=== PATIENT | male | born 1955 | race Caucasian/White ===

== ENCOUNTER 2020-09-25 10:41 | Inpatient (IN) | payer BC, SELFPAY ==
[2020-09-25] VITALS (21 sets, daily range): BP systolic 86–156; BP diastolic 62–102; PULSE 88–169; RESP 15–22; TEMP 36.8–37.1; O2SAT 93–99; BMI 26.5
--- NOTE | 2020-09-25 11:19 | ECG_ITS ---
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 Measurements Intervals [place] Rate: 158 P: [place]: QRS: 9 QRSD: 82 T: 74 QT: 255 QTc: 414 Interpretive Statements ATRIAL FIBRILLATION WITH RAPID VENTRICULAR RESPONSE NONSPECIFIC ST & T-WAVE ABNORMALITY ABNORMAL RHYTHM ECG No previous ECG available for comparison Electronically Signed On 09-25-2020 22:52:01 CDT by Catie Noe M.D. [id number]
--- NOTE | 2020-09-25 11:20 | XR_ITS ---
WS: [id number] Portable AP upright chest, 09/25/2020 Clinical Data: Cough Comparison: None. Findings: No nodules, masses or effusions are seen. The heart is normal. The pulmonary vascularity is not increased. No pneumonia or pneumothorax is seen. Monitor leads are on the chest wall. There is a slight dextroscoliosis. XR/XR chest 1V portable [id number] Impression: Negative chest.
--- NOTE | 2020-09-25 11:21 | ED_ITS ---
HPI - General Adult General: Chief complaint: General Medical Stated complaint: LOW BP Time Seen by Provider: 09/25/20 11:16 History of Present Illness: HPI narrative: This patient is a 65-year-old male who presents to the emergency department for low blood pressure and dizziness. Patient had a cerebellar stroke 1 year ago and is on multiple medications including blood pressure medications. Patient's blood pressure has been running low over the past 2 days but patient still took his medications for hypertension which includes amlodipine and losartan. Patient is on aspirin and Plavix. Patient appears to have some atrial fib with RVR heart rate ranging anywhere from 110-1 40. We will get an EKG and evaluate treat further as needed. Onset (ago): day(s) Associated symptoms: Reports palpitations; Deny chest pain, dyspnea, headache(s), nausea, rash or vomiting Review of Systems General: Reports: 10 or more systems reviewed and unremarkable except in HPI and below Const: Denies: fever(s), chills, body aches or fatigue Eyes: Denies: change in vision or blurry vision ENMT: Denies: throat pain, hoarseness or mouth pain Card: Reports: palpitations; Denies: chest pain, irregular heart rhythm, edema, swelling of feet/ankles or lightheadedness Resp: Denies: dyspnea, productive cough, non-productive cough, wheezing or pain on inspiration GI: Denies: abdominal pain, nausea or vomiting : Denies: flank pain, dysuria, urinary frequency, urinary urgency or urinary hesitancy Musc: Denies: neck pain, back pain, extremity pain, extremity swelling, joint pain, joint swelling, joint redness, joint warmth or limited range of motion Skin/Breast: Denies: rash, pruritus, erythema or skin tenderness Neuro: Reports: dizziness; Denies: headache(s), numbness in extremities or weakness in extremities Psych: Denies: anxiety or depression PFSH ED PFSH: Medical History Chronic low back pain CVD (cardiovascular disease) Gout Hx TIA/stroke w/o resid (~2019) Hyperlipidemia Hypertension Insomnia disorder Surgical History History of surgery on wrist Family History Mother COPD (chronic obstructive pulmonary disease) Other CAD (coronary artery disease) Social History Smoking and tobacco status: former smoker Alcohol intake: current Alcohol intake frequency: 0-2 Drinks per Day Alcohol type: beer Marital status: Number of children: 3 Number of grandchildren: 3 Current occupational status: retired Physical Exam Const: COMMON NORMALS: no acute distress, average body habitus, patient oriented x3, no limitations, healthy appearing, alert and well nourished HENMT: COMMON NORMALS: normocephalic, atraumatic, hearing grossly normal bilaterally, external ears normal, EAC's normal, TM's normal bilaterally, Normal external nose present, Normal nasal mucous membranes and turbinates present, moist oral mucous membranes, oropharynx normal, dentition normal and gingiva normal HEAD & SCALP: normocephalic and atraumatic NOSE: Normal external nose present and Normal nasal mucous membranes and turbinates present EXTERNAL EAR: Yes external ears normal EXTERNAL AUDITORY CANAL: EAC's normal TYMPANIC MEMBRANE: TM's normal bilaterally Neck/C-Spine: COMMON NORMALS: full ROM, no lymphadenopathy, supple, no meningeal signs, no JVD, Thyroid normal and No carotid bruits THYROID: Thyroid normal Chest: COMMONS NORMALS: normal inspection of the chest, normal palpation of entire chest wall, normal inspection of the breasts and normal palpation of the breasts Breast/axilla inspection: Yes normal inspection of the breasts BREAST/AXILLA PALPATION: Yes normal palpation of the breasts Resp: COMMON NORMALS: normal respiratory effort, No retractions, No use of accessory muscles, clear to auscultation bilaterally and percussion normal AUSCULTATION: clear to auscultation bilaterally PERCUSSION: percussion normal Cardio: COMMON NORMALS: no JVD, S1 normal heart sound present, S2 normal heart sound present, No gallops present (Cardio), No clicks present (Cardio), No murmurs present (Cardio), No rub (Cardio) and Peripheral pulses 2+ throughout RATE: tachycardic RHYTHM: abnormal rhythm HEART SOUNDS: S1 normal heart sound present and S2 normal heart sound present PERIPHERAL PULSES: Peripheral pulses 2+ throughout GI: COMMON NORMALS: Normal to inspection, nondistended, normoactive bowel sounds present, Soft to palpation, non-tender, No hepatosplenomegaly present, no masses and no bruits PALPATION: Yes Soft to palpation and Yes No hepatosplenomegaly present : COMMON NORMALS: Yes no CVA tenderness BLADDER/KIDNEY EXAM: Yes no CVA tenderness Back/Pelvis: COMMON NORMALS: no CVA tenderness, thoracic and lumbar spine normal to inspection, no thoracic nor lumbar tenderness, thoraco-lumbar ROM normal and straight leg raise negative bilaterally Extremity: COMMON NORMALS: normal to inspection, full ROM, capillary refill normal, no joint enlargement, no clubbing, cyanosis or edema, no calf tenderness and no pedal edema Neuro: COMMON NORMALS: patient oriented x3 SENSORIUM/ORIENTATION: Yes alert MENINGEAL SIGNS: Yes no meningeal signs Course Reevaluation(s): Reevaluation #1: Patient has improved. Blood pressure 144/89 after initial amiodarone drip. Heart rate is down in the 1 teens to 130s. Did have as high rate is in the 180s. Patient has no history of A. fib in the past. Patient is agreeable to admit. Time: 13:13 Consultations: Consultation #1: I did discuss at length with Dr. Dhaliwal. Hospitalist. He is agreed to admit the patient for further evaluation and treatment. He will start patient on anticoagulation medications due to new onset A. fib. Time: 13:13 Consultation #2: Discussed at length with Dr. Palmer cardiology she will see patient as a sap portal consultant. Time: 13:13 Vital Signs: Vital signs: Vital Signs Temperature 98.7 F 09/25/20 10:55 Pulse Rate 88 09/25/20 10:55 Respiratory Rate 18 09/25/20 10:55 Blood Pressure 86/62 09/25/20 10:55 Pulse Oximetry 98 09/25/20 10:55 MDM - General Adult MDM Narrative: Medical decision making narrative: This patient is a 65-year-old male who presents to the emergency department for low blood pressure and dizziness. Patient had a cerebellar stroke 1 year ago and is on multiple medications including blood pressure medications. Patient's blood pressure has been running low over the past 2 days but patient still took his medications for hypertension which includes amlodipine and losartan. Patient is on aspirin and Plavix. Patient appears to have some atrial fib with RVR heart rate ranging anywhere from 110-1 40. Patient has improved. Blood pressure 144/89 after initial amiodarone drip. Heart rate is down in the 1 teens to 130s. Did have as high rate is in the 180s. Patient has no history of A. fib in the past. Patient is agreeable to admit. I did discuss at length with Dr. Dhaliwal. Hospitalist. He is agreed to admit the patient for further evaluation and treatment. He will start patient on anticoagulation medications due to new onset A. fib. Discussed at length with Dr. Palmer cardiology she will see patient as a sap portal consultant. Lab Data: Labs: Lab Results 09/25/20 09/25/20 09/25/20 Range/Units 11:40 11:40 11:40 WBC 7.4 (4.0-10.0) 10^3/ uL RBC 4.81 (4.1-5.3) 10^6/u L Hgb 15.3 (11.7-16.6) g/dL Hct 44.6 (42.0-52.0) % MCV 92.7 (80-94) fL MCH 31.8 (28.0-34.0) pg MCHC 34.3 (30.0-36.0) g/dL RDW 12.4 (12.1-15.1) % Plt Count 269 (130-400) 10^3/c mm MPV 9.8 (7.4-10.4) fL Neut % (Auto) 54.1 % Lymph % (Auto) 28.1 % [place] % (Auto) 14.5 % Eos % (Auto) 2.0 % Baso % (Auto) 0.9 % Neut # (Auto) 3.98 (1.8-7.7) 10^3/u L Lymph # (Auto) 2.1 (0.8-4.8) 10^3/u L [place] # (Auto) 1.1 H (0.2-0.9) 10^3/u L Eos # (Auto) 0.2 (0.0-0.8) 10^3/u L Baso # (Auto) 0.1 (0.0-0.1) 10^3/u L Nucleated RBC % (a uto) 0 % Nucleated RBCs # 0.0 /100WBC PT 13.70 (12.1-14.9) SECO NDS INR 1.02 (0.8-1.2) APTT 27.9 (23.9-36.7) SECO NDS Sodium 136 (136-145) mmol/L Potassium 4.1 (3.5-5.1) mmol/L Chloride 100 (98-107) mmol/L Carbon Dioxide 22 (22-29) mmol/L Anion Gap 18.1 (5-19) BUN 17 (8-23) mg/dL Creatinine 1.5 H (0.7-1.2) mg/dL GFR Calculation 47.1 L (90-130) mL/min Glucose 87 (65-115) mg/dL Calculated Osmolal ity 283 L (285-295) mOsm/k g Calcium 8.8 (8.5-10.5) mg/dL Total Bilirubin 0.7 (0.15-1.2) mg/dL AST 33 (0-40) U/L ALT 33 (0-41) U/L Alkaline Phosphata se 60 (40-130) IU/L Troponin T Baselin e (0-15) ng/L NT-Pro-B Natriuret Pep 4975 H (0-125) pg/mL Total Protein 6.7 (6.6-8.7) g/dL Albumin 4.2 (3.5-5.2) g/dL Globulin 2.5 (1.3-4.6) g/dL /10/09 Range/Units 11:40 WBC (4.0-10.0) 10^3/ uL RBC (4.1-5.3) 10^6/u L Hgb (11.7-16.6) g/dL Hct (42.0-52.0) % MCV (80-94) fL MCH (28.0-34.0) pg MCHC (30.0-36.0) g/dL RDW (12.1-15.1) % Plt Count (130-400) 10^3/c mm MPV (7.4-10.4) fL Neut % (Auto) % Lymph % (Auto) % [place] % (Auto) % Eos % (Auto) % Baso % (Auto) % Neut # (Auto) (1.8-7.7) 10^3/u L Lymph # (Auto) (0.8-4.8) 10^3/u L [place] # (Auto) (0.2-0.9) 10^3/u L Eos # (Auto) (0.0-0.8) 10^3/u L Baso # (Auto) (0.0-0.1) 10^3/u L Nucleated RBC % (a uto) % Nucleated RBCs # /100WBC PT (12.1-14.9) SECO NDS INR (0.8-1.2) APTT (23.9-36.7) SECO NDS Sodium (136-145) mmol/L Potassium (3.5-5.1) mmol/L Chloride (98-107) mmol/L Carbon Dioxide (22-29) mmol/L Anion Gap (5-19) BUN (8-23) mg/dL Creatinine (0.7-1.2) mg/dL GFR Calculation (90-130) mL/min Glucose (65-115) mg/dL Calculated Osmolal ity (285-295) mOsm/k g Calcium (8.5-10.5) mg/dL Total Bilirubin (0.15-1.2) mg/dL AST (0-40) U/L ALT (0-41) U/L Alkaline Phosphata se (40-130) IU/L Troponin T Baselin e 61 H (0-15) ng/L NT-Pro-B Natriuret Pep (0-125) pg/mL Total Protein (6.6-8.7) g/dL Albumin (3.5-5.2) g/dL Globulin (1.3-4.6) g/dL Imaging Data^: CXR: Attestation: I personally reviewed and interpreted this imaging study as follows: Radiologist's impression: Impression: Negative chest EKG Data^: EKG 1: Attestation: I personally reviewed and interpreted this EKG as follows: EKG interpretation date: 09/25/20 EKG interpretation time: 11:23 Prior EKG tracings: not available for review Interpretation: Atrial fibrillation with rapid ventricular response nonspecific ST changes heart rate 158. radiation monitor ranging from 1 15-1 58. Blood pressure 103/61. Computer generated interpretation: Chest X-Ray 09/25/20 11:20 Impression: Negative chest. Discharge Plan Discharge Patient Disposition: Admitted As Inpatient Clinical Impression: Atrial fibrillation with rapid ventricular response, Orthostasis, History of cerebrovascular accident Condition: Stable Coding Level of Care Code ED Rod Buster Helper for Carlyleg Fwd Exam Comprehensive
--- NOTE | 2020-09-25 11:35 | PM.HP ---
Providers/Chief Complaint Primary Care Provider: Kristian Bertrand MD Chief Complaint: LOW BP History of Present Illness 65-year-old with a past medical history significant for hypertension, dyslipidemia, chronic back pain, insomnia, a CVA without any residual deficits he has presented to the hospital with palpitations. Stated this was associated with episodes of dizziness. Denies chest pain. Cannot recall exact diagnosis however has been told of irregular heartbeat in the past. Does not take any chronic medications for this. No recent fever, chills, nausea or vomiting. Upon arrival to emergency roomPatients initial laboratory workup showed a WBC 7.4, hemoglobin 15.3, hematocrit 44.6 and a platelet count of 269. Sodium 136, potassium 4.1, chloride 100, bicarb 22, BUN 17 and creatinine 1.5. No prior labs to compare. LFTs were within normal limits. Density -12.7. ProBNP was elevated at 4975. COVID-19 rapid antigen was negative.Imaging studies included chest x-ray which was negative. EKG showed atrial fibrillation with rapid ventricular response.Patient was started on amiodarone drip. In addition heparin drip was added. Patient was awake alert without any discomfort at the time of my evaluation. Review of Systems General: Reports: 10 or more systems reviewed and unremarkable except in HPI and below Medications/Allergies Home Medications Medication Instructions Recorded Confirmed Last Taken Type hydrocodone 10 mg-acetaminophen 1 tab PO DAILY PRN 30 Days #30 tab 09/20/20 09/25/20 09/24/20 Rx 325 mg tablet 1/2 tab Adult Aspirin Regimen 81 mg PO QAM 09/25/20 09/25/20 09/25/20 08:30 History Plavix 75 mg PO QAM 09/25/20 09/25/20 09/25/20 08:30 History allopurinol 100 mg PO BEDTIME 09/25/20 09/25/20 09/24/20 History amlodipine 5 mg PO QAM 09/25/20 09/25/20 09/25/20 08:30 History atorvastatin 80 mg PO QPM 09/25/20 09/25/20 09/24/20 History cyclobenzaprine [Flexeril] 2.5 mg PO PRN 09/25/20 09/25/20 Unknown History docusate sodium [Stool Softener] 100 mg PO BEDTIME 09/25/20 09/25/20 Unknown History fludrocortisone 0.1 mg PO QAM 09/25/20 09/25/20 09/25/20 08:30 History losartan-hydrochlorothiazide 0.5 tab PO QAM 09/25/20 09/25/20 09/25/20 08:30 History omega-3 fatty acids [Fish Oil] 1 cap PO QAM 09/25/20 09/25/20 09/25/20 History trazodone 100 mg PO BEDTIME 09/25/20 09/25/20 09/24/20 History Allergies Allergy/AdvReac Type Severity Reaction Status Date / Time morphine AdvReac Intermediate ADR-Itching Verified 09/25/20 11:51 PFSH Acute PFSH: Medical History Chronic low back pain CVD (cardiovascular disease) Gout Hx TIA/stroke w/o resid (~2019) Hyperlipidemia Hypertension Insomnia disorder Surgical History History of surgery on wrist Family History Mother COPD (chronic obstructive pulmonary disease) Other CAD (coronary artery disease) Social History Smoking and tobacco status: former smoker Alcohol intake: current Alcohol intake frequency: 0-2 Drinks per Day Alcohol type: beer Marital status: Number of children: 3 Number of grandchildren: 3 Current occupational status: retired Vitals/I&O/Wt Last Vital Signs Temp 98.7 F 09/25/20 10:55 Pulse 88 09/25/20 10:55 Resp 18 09/25/20 10:55 BP 86/62 09/25/20 10:55 Pulse Ox 98 09/25/20 10:55 Weight last 48 hrs Weight 83.915 kg Physical Exam Narrative: EXAM NARRATIVE: General- alert awake and oriented x3 HEENT-grossly unremarkable CVS -irregularly irregular rhythm with rapid rate Chest -clear to auscultation bilaterally Abdomen -soft nontender nondistended Extremities -no lower extremity edema Data : 09/25/20 11:40 09/25/20 11:40 A&P Assessment and plan (1) Atrial fibrillation with rapid ventricular response: Status: Acute (2) Hypertension: Status: Acute (3) Hyperlipidemia: Status: Acute (4) Gout: Status: Acute (5) History of cerebrovascular accident: Status: Acute Newly dx fibrillation with rapid ventricular response Cardiology consulted Amiodarone drip as ordered Digoxin as ordered by cardio Metoprolol 12.5 mg PO BID Heparin gtt ECHO once HR improved Cardiac telemetry TSH in AM Avoid stimulants Acute kidney injury Pre-renal / Hypotensive Possible Cardio-renal BMP in am Renal dosing Monitor u/o Hypertension Meds as above. H/x of Orthosatic hypotention On florinef priot to arrival Fall precautions Hx of CVA w/o residual deficit Aspirin 81 mg PO daily Plavix 75 mg PO daily Lipitor 80 mg PO daily Dyslipidemia Statin DVT ppx Heparin gtt as ordered Attestations Medical Necessity Statement*: Patient will require over 2 midnight stay in hospital for eval and treatment of new onset afib with RVR. Time Spent in Patient Care: Greater than 35 minutes (>than 50% of time spent in counselling and/or direct pt care on unit). Coding Level of Care Code Acute Business Solutions Director for Gale Fwd Diagnoses Atrial fibrillation with rapid ventricular response I48.91 Hypertension I10 Hyperlipidemia E78.5 Gout M10.9 History of cerebrovascular accident Z86.73
[2020-09-25 11:48] LABS: Basophils # 0.1 10^3/uL (0.0-0.1); Basophils % 0.9 %; Eosinophils # 0.2 10^3/uL (0.0-0.8); Hematocrit 44.6 % (42.0-52.0); Hemoglobin 15.3 g/dL (11.7-16.6); Lymphocytes # 2.1 10^3/uL (0.8-4.8); Lymphocytes % 28.1 %; Mean Corpuscular HGB Conc 34.3 g/dL (30.0-36.0); Mean Corpuscular Hemoglobin 31.8 pg (28.0-34.0); Mean Corpuscular Volume 92.7 fL (80-94); Mean Platelet Volume 9.8 fL (7.4-10.4); Monocytes # 1.1 10^3/uL (0.2-0.9); Monocytes % 14.5 %; Neutrophils # 3.98 10^3/uL (1.8-7.7); Neutrophils % 54.1 %; Nucleated Red Blood Cells % 0 %; Platelet Count 269 10^3/cmm (130-400); Red Blood Count 4.81 10^6/uL (4.1-5.3); Red Cell Distribution Width 12.4 % (12.1-15.1); White Blood Count 7.4 10^3/uL (4.0-10.0)
[2020-09-25] MEDS: sodium chloride 0.9% 1,000 ML 999 ML IV (12:04)
[2020-09-25 12:06] LABS: INR 1.02 (0.8-1.2)
[2020-09-25 12:07] LABS: Partial Thromboplastin Time 27.9 SECONDS (23.9-36.7)
[2020-09-25 12:08] LABS: Troponin(5th) Baseline 61 ng/L (0-15)
[2020-09-25 12:18] LABS: Alanine Aminotransferase 33 U/L (0-41); Albumin Level 4.2 g/dL (3.5-5.2); Alkaline Phosphatase 60 IU/L (40-130); Aspartate Amino Transferase 33 U/L (0-40); Blood Urea Nitrogen 17 mg/dL (8-23); Calcium 8.8 mg/dL (8.5-10.5); Carbon Dioxide 22 mmol/L (22-29); Chloride 100 mmol/L (98-107); Globulin 2.5 g/dL (1.3-4.6); Glomerular Filtration Rate 47.1 mL/min (90-130); Glucose 87 mg/dL (65-115); NT Pro B Type Natriuretic Pept 4975 pg/mL (0-125); Osmolality Calculated 283 mOsm/kg (285-295); Sodium 136 mmol/L (136-145); Total Bilirubin 0.7 mg/dL (0.15-1.2); Total Protein 6.7 g/dL (6.6-8.7)
[2020-09-25 12:23] LABS: Anion Gap 18.1 (5-19); Potassium 4.1 mmol/L (3.5-5.1)
--- NOTE | 2020-09-25 13:21 | ECG_ITS ---
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 Measurements Intervals [place] Rate: 117 P: [place]: QRS: 17 QRSD: 92 T: 69 QT: 330 QTc: 461 Interpretive Statements ATRIAL FIBRILLATION WITH RAPID VENTRICULAR RESPONSE ABNORMAL RHYTHM ECG Compared to ECG 09/25/2020 11:23:43 T-wave abnormality no longer present Electronically Signed On 09-25-2020 23:01:51 CDT by Catie Noe M.D. [id number]
--- NOTE | 2020-09-25 17:21 | ECG_ITS ---
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 Measurements Intervals [place] Rate: 123 P: [place]: QRS: 4 QRSD: 96 T: 72 QT: 323 QTc: 462 Interpretive Statements ATRIAL FIBRILLATION WITH RAPID VENTRICULAR RESPONSE WITH ABERRANT CONDUCTION OR VENTRICULAR PREMATURE COMPLEXES MODERATE ST DEPRESSION [0.05+ mV ST DEPRESSION] Compared to ECG 09/25/2020 13:51:34 Ventricular premature complex(es) now present Aberrant conduction of supraventricular beat(s) now present ST (T wave) deviation now present Electronically Signed On 09-25-2020 23:04:32 CDT by Catie Noe M.D. [id number]
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
[2020-09-25] MEDS: HYDROcodone-acetaminophen 10-325 mg Tablet 1 TAB PO (20:04)
[2020-09-25] MEDS: digoxin 250 mcg/ml INJ 2 mL 500 MCG IVP (20:11)
--- NOTE | 2020-09-25 20:21 | PC.NURSE ---
i assumed care of this patient at 1900 09/25/20
[2020-09-25] MEDS: heparin drip 25,000 UNIT/500 ML PREMIX 23.5 UNIT IV (20:42)
[2020-09-25 21:01] LABS: SARS Covid-2 Antigen Negative (Negative)
[2020-09-25] MEDS: trazodone 100 mg Tablet PO (21:14)
[2020-09-25] MEDS: metoprolol tartrate 25 mg Tablet 12.5 MG PO (21:14)
[2020-09-25] MEDS: sodium chloride 0.9% 1,000 ML 50 ML IV (21:19)
[2020-09-25 23:11] LABS: Partial Thromboplastin Time 68.7 SECONDS (23.9-36.7)
--- NOTE | 2020-09-25 23:15 | PC.NURSE ---
admit note arrived to unit from ED alert and oriented X4, breathing even and non-labored on room air. Pt ambulated self from gurney to bed. Arrived to unit with amiodarone drip infusing at 1mcg, Heparin gtt running at 23.5ml/hr. Pt denies pain, chest pain, dizziness, shortness of breath. Oriented to room and call light.
[2020-09-25] MEDS: atorvastatin 40 mg Tablet 80 MG PO (23:38)
[2020-09-25 23:54] LABS: Add Urine Microscopic? NO; Charge for UA Resulting for Rev
[2020-09-26] VITALS (23 sets, daily range): BP systolic 102–142; BP diastolic 64–90; PULSE 60–125; RESP 10–21; TEMP 36.7–36.8; O2SAT 93–100
[2020-09-26 00:08] LABS: Bilirubin Urine Neg (Negative); Blood Urine Neg (Negative); Glucose Urine UA Norm (Normal); Ketones Urine Negative (Negative); Leukocyte Esterase Urine Negative (Negative); Nitrate Urine Negative (Negative); Protein Urine Neg (Negative); Urine Appearance Clear (CLEAR); Urine Color Yellow (Yellow); Urobilinogen Urine Norm (Negative); pH Urine 6.5 (5-7)
[2020-09-26] MEDS: digoxin 250 mcg/ml INJ 2 mL IVP (00:44)
[2020-09-26] MEDS: fludrocortisone 0.1 mg Tablet PO (05:39)
[2020-09-26] MEDS: clopidogrel 75 mg Tablet PO (05:39)
[2020-09-26] MEDS: aspirin 81 mg EC Tablet PO (05:39)
[2020-09-26 06:06] LABS: Basophils # 0.1 10^3/uL (0.0-0.1); Basophils % 0.8 %; Eosinophils # 0.1 10^3/uL (0.0-0.8); Hematocrit 40.8 % (42.0-52.0); Hemoglobin 13.7 g/dL (11.7-16.6); Lymphocytes # 1.9 10^3/uL (0.8-4.8); Lymphocytes % 31.8 %; Mean Corpuscular HGB Conc 33.6 g/dL (30.0-36.0); Mean Corpuscular Hemoglobin 31.7 pg (28.0-34.0); Mean Corpuscular Volume 94.4 fL (80-94); Mean Platelet Volume 10.3 fL (7.4-10.4); Monocytes # 0.8 10^3/uL (0.2-0.9); Monocytes % 13.3 %; Neutrophils # 3.16 10^3/uL (1.8-7.7); Neutrophils % 51.8 %; Nucleated Red Blood Cells % 0 %; Platelet Count 221 10^3/cmm (130-400); Red Blood Count 4.32 10^6/uL (4.1-5.3); Red Cell Distribution Width 12.3 % (12.1-15.1); White Blood Count 6.1 10^3/uL (4.0-10.0)
[2020-09-26] MEDS: lanolin oint 7 gm 1 APPLIC TOPICAL (06:16)
[2020-09-26 06:17] LABS: Chol HDL Ratio 2.57 mg/dL (1.0-5.00); Cholesterol 113 mg/dL (0-200); HDL Cholesterol 44 mg/dL (60-100); LDL Cholesterol Calculated 58 mg/dL (50-129); LDL HDL Ratio 1.32 RATIO (0.00-3.22); Triglycerides 55 mg/dL (0-150)
[2020-09-26 06:21] LABS: Partial Thromboplastin Time 100.5 SECONDS (23.9-36.7)
[2020-09-26 06:24] LABS: Alanine Aminotransferase 31 U/L (0-41); Albumin Level 3.5 g/dL (3.5-5.2); Alkaline Phosphatase 55 IU/L (40-130); Anion Gap 13.3 (5-19); Aspartate Amino Transferase 24 U/L (0-40); Blood Urea Nitrogen 14 mg/dL (8-23); Calcium 8.5 mg/dL (8.5-10.5); Carbon Dioxide 26 mmol/L (22-29); Chloride 108 mmol/L (98-107); Globulin 2.5 g/dL (1.3-4.6); Glomerular Filtration Rate 47.1 mL/min (90-130); Glucose 104 mg/dL (65-115); Magnesium 1.9 mg/dL (1.7-2.3); Osmolality Calculated 297 mOsm/kg (285-295); Potassium 4.3 mmol/L (3.5-5.1); Sodium 143 mmol/L (136-145); Thyroid Stimulating Hormone 2.82 uIU/mL (0.27-4.20); Total Bilirubin 0.7 mg/dL (0.15-1.2)
[2020-09-26 06:29] LABS: Estmated Average Glucose 111; Hemoglobin A1C 5.5 % (4.0-6.0)
[2020-09-26] MEDS: amiodarone 200 mg Tablet 400 MG PO ×3 (08:21→21:33)
[2020-09-26] MEDS: metoprolol tartrate 25 mg Tablet PO ×2 (08:21→21:34)
--- NOTE | 2020-09-26 08:40 | PC.NURSE ---
Assuming care of patient at this time.
--- NOTE | 2020-09-26 08:56 | PC.CHAP ---
Pastoral Care Encounter/Spiritual Assessment Type of Contact [] Declined customer facilities supervisor visit [] Patient/Family/Request visit [] Outpatient visit [] Follow-up visit [] Physician referral [] Code/Alert [x] Routine visit [] Staff referral [] Actively dying [] Patient sleeping [] Family support [] [] Out of room [] Palliative care [] [] Receiving care in room [] Pre-surgical visit [] Trauma [] Long length of stay [x] ICU visit [] Other: Relational/Emotional Strength [] Patient feels connected with others/family/visitors/staff [] Distress [] Loneliness/isolation [] Abandonment Spirituality of Patient [] Person of Nadine [] Attends Sabianist of their Nadine [] Believes in Prayer [] Reads Bible or Yazidi materials [] There are Spiritual issues to be addressed Cut Off Operator Scorer Interventions [x] Prayer [x] Active listening [x] Non-anxious presence [x] Spiritual/emotional support [] Crisis/trauma care [] Spiritual counseling [] Bereavement support [] Provided bereavement packet [] Provided Bible/devotional materials [] Provided toy/stuffed animal, coloring book to patient or family member [] Provided Communion [] Anointing/[place] [] Salvation [x] Completed spiritual assessment [] Other: Impact on Illness or Injury [] Angry [] Fearful [] Anxious [] Often cries [] Exhaustion [] Unable to work [] Unable to attend mormon [] Unable to walk/stand [] Unable to read [] Unable to drive [] Unable to eat/drink [] Unable to sleep [] Unable to be with family [] Patient intubated [] Other: Summary BP lower and feeling much better Time spent with patient 5 min
--- NOTE | 2020-09-26 10:06 | PC.NURSE ---
Amiodarone gtt stopped at this time
--- NOTE | 2020-09-26 12:25 | P.PN_ITS ---
Subjective Subjective: Interval history: no new clinical events overnight. Patients rate control was improved. No fever, chills, nausea or vomiting. Denies chest pain. Medications: Reviewed: Yes Vitals/I&O/Wt Last Vital Signs Temp 98.2 F 09/26/20 08:00 Pulse 76 09/26/20 16:00 Resp 16 09/26/20 16:00 BP 105/78 09/26/20 16:00 Pulse Ox 96 09/26/20 16:00 09/26/20 09/26/20 09/26/20 06:59 14:59 22:59 Intake Total 697.818 / 823.814 6510.349 / 1549.349 Output Total 1075 / 1075 600 / 600 Balance -377.182 / -377.182 949.349 / 949.349 Weight last 48 hrs Weight 84.459 kg Weight 83.915 kg Physical Exam Narrative: EXAM NARRATIVE: General- alert awake and oriented x3 HEENT-grossly unremarkable CVS -irregularly irregular rhythm with rapid rate Chest -clear to auscultation bilaterally Abdomen -soft nontender nondistended Extremities -no lower extremity edema Data : 09/26/20 05:10 09/26/20 05:10 A&P Assessment and plan (1) Atrial fibrillation with rapid ventricular response: Status: Acute (2) Hypertension: Status: Acute (3) Hyperlipidemia: Status: Acute (4) Gout: Status: Acute (5) History of cerebrovascular accident: Status: Acute Newly dx fibrillation with rapid ventricular response Cardiology consulted Amiodarone 400 mg PO BID Digoxin as ordered by cardio Metoprolol 25 mg PO BID Heparin gtt - May change to eliquis ECHO once HR improved -pending Cardiac telemetry Avoid stimulants Acute kidney injury Possible on chronic vs component of CRS Renal US Nephro consult if no improvement BMP in am Renal dosing Monitor u/o Hypertension Meds as above. H/x of Orthosatic hypotention On ine priot to arrival Fall precautions Hx of CVA w/o residual deficit Aspirin 81 mg PO daily Plavix 75 mg PO daily Lipitor 80 mg PO daily Dyslipidemia Statin DVT ppx Heparin gtt as ordered Transfer to Cardiac step down Attestations Medical Necessity Statement*: Require further hospitalization for management of atrial fibrillation Time Spent in Patient Care: Greater than 35 minutes (>than 50% of time spent in counselling and/or direct pt care on unit) . Coding Level of Care Code Acute Buffing Line Set Up Worker for Chg Fwd Diagnoses Atrial fibrillation with rapid ventricular response I48.91 Hypertension I10 Hyperlipidemia E78.5 Gout M10.9 History of cerebrovascular accident Z86.73
[2020-09-26 14:26] LABS: Partial Thromboplastin Time 68.3 SECONDS (23.9-36.7)
[2020-09-26] MEDS: HYDROcodone-acetaminophen 10-325 mg Tablet 1 TAB PO (14:32)
--- NOTE | 2020-09-26 15:16 | PC.NURSE ---
Attempted to call report to CSU, nurse unavailable, room not clean.
--- NOTE | 2020-09-26 17:46 | P.PN_ITS ---
Subjective Subjective: Interval history: Patient feels well and denies any complaints. transferred out of unit. Medications: Reviewed: Yes Vitals/I&O/Wt Last Vital Signs Temp 98.2 F 09/26/20 08:00 Pulse 76 09/26/20 16:00 Resp 16 09/26/20 16:00 BP 105/78 09/26/20 16:00 Pulse Ox 96 09/26/20 16:00 09/26/20 09/26/20 09/26/20 06:59 14:59 22:59 Intake Total 697.818 / 713.918 8600.349 / 1549.349 Output Total 1075 / 1075 600 / 600 Balance -377.182 / -377.182 949.349 / 949.349 Weight last 48 hrs Weight 186 lb 3.2 oz Weight 185 lb Physical Exam Narrative: EXAM NARRATIVE: Gen: NAD, ABAN, sitting comfortably in bed HEENT: PEERL, EOMI, No pallor or icterus RS: CTAB/L, No wheezing, rales or rhonci CVS: S1, S2 irregular or variable intensity, tachycardia+, No murmur heard FIBERGLASS CONTAINER WINDING OPERATOR: AAOx 3, No FND Skin: No rashes noted Psych: Normal mood and affect Data : 09/26/20 05:10 09/26/20 05:10 A&P Assessment and plan (1) Atrial fibrillation with rapid ventricular response: Newly diagnosed. >48 hr since onset [id number]=2/9, 1 for HTN and 2 for prior stroke -He was started on heparin gtt. Transition to PO Eliquis -continue on low dose metoprolol tartrate and digoxin. -echo still pending. -May need LEX/CV. However, as he is asymptomatic; if HR is fairly controlled will consider doing that as an outpatient. Status: Acute (2) Hypertension: Status: Acute Qualifiers: Hypertension type: essential hypertension Qualified Code(s): I10 - Essential (primary) hypertension (3) Hyperlipidemia: Status: Acute Qualifiers: Hyperlipidemia type: mixed hyperlipidemia Qualified Code(s): E78.2 - Mixed hyperlipidemia (4) History of cerebrovascular accident: continue ASA and statin. Status: Acute (5) Chronic low back pain: Status: Acute Qualifiers: Back pain laterality: unspecified Additional A&P Information NSTEMI : Likley type 2 in setting of atrial fibrillation with RVR: No recent stress testing and h/o CVA, HTN, HLD. He will benefit from stress testing for further risk stratification h/o orthostatic dizziness: Patient denies. CHRISTIN : No h/o CKD. however no prior renal function available for comparison Thank you for allowing me to participate in patient's care. Please feel free to call with questions or concerns. Attestations Medical Necessity Statement*: needs hospital stay for management of atrial fibrillation Time Spent in Patient Care: 16 - 35 minutes (>than 50% of time spent in counselling and/or direct pt care on unit) . Coding Level of Care Code Acute Dental Office Manager for Gale Fwdarlene Diagnoses Atrial fibrillation with rapid ventricular response I48.91 Hypertension I10 Hypertension type: essential hypertension Hyperlipidemia E78.2 Hyperlipidemia type: mixed hyperlipidemia History of cerebrovascular accident Z86.73 Chronic low back pain M54.5; G89.29 Back pain laterality: unspecified
[2020-09-26] MEDS: atorvastatin 40 mg Tablet 80 MG PO (17:47)
[2020-09-26] MEDS: digoxin 250 mcg/ml INJ 2 mL 125 MCG IVP (18:22)
--- NOTE | 2020-09-26 19:37 | PC.NURSE ---
Received bedside report from KIANA Ng. Patient resting in bed with family at bedside. Patient currently on heparin drip and to transition to Eliquis tonight at 2100. Heparin almost empty. Informed Dr Palmer and received telephone order to change PTT draw to stat now and to stop the heparin drip. To notify Dr Palmer if PTT is high value for further instructions.
[2020-09-26 21:20] LABS: Partial Thromboplastin Time 33.5 SECONDS (23.9-36.7)
[2020-09-26] MEDS: allopurinol 100 mg Tablet PO (21:33)
[2020-09-26] MEDS: trazodone 100 mg Tablet PO (21:34)
[2020-09-26] MEDS: apixaban 5 mg Tablet PO (21:39)
[2020-09-27] VITALS (8 sets, daily range): BP systolic 96–121; BP diastolic 68–89; PULSE 62–103; RESP 16–18; TEMP 36.3–36.8; O2SAT 98–100
--- NOTE | 2020-09-27 05:00 | USCV_ITS ---
Yusuf Gonzales Age: 65 Gender: M : 1955 Exam Date: 09/27/2020 06:16 Ordering Phys: Yajaira Palmer MD ([email or web address]) Technologist: Oliva Oconnor Exam Location: [facility] – [place] Indication: A FIB BP: 109 / 89 HR: 87 Rhythm: Atrial fibrillation Technical Quality: Adequate MEASUREMENTS (Male / Female) Normal Values 2D ECHO LV Diastolic Diameter PLAX 3.5 cm 4.2 - 5.9 / 3.9 - 5.3 cm LV Systolic Diameter PLAX 2.8 cm IVS Diastolic Thickness 1.4 cm 0.6 - 1.0 / 0.6 - 0.9 cm IVS Systolic Thickness 2.1 cm LVPW Diastolic Thickness 1.6 cm 0.6 - 1.0 / 0.6 - 0.9 cm LVPW Systolic Thickness 1.8 cm LVOT Diameter 2.0 cm LV Ejection Fraction 2D Teich 43.7 % LV Ejection Fraction MOD 2C 57.8 % LV Ejection Fraction 2C AL 59.4 % LA Diameter 3.2 cm LA Width 2.7 cm LA Height 4.2 cm RA Width 2.6 cm RA Height 4.2 cm Aorta at Sinotubular Diameter 3.0 cm M-MODE LV Diastolic Diameter MM 5.3 cm 4.2 - 5.9 / 3.9 - 5.3 cm LV Systolic Diameter MM 3.6 cm LV Ejection Fraction MM Teich 60.5 % IVS Diastolic Thickness MM 2.1 cm 0.6 - 1.0 / 0.6 - 0.9 cm IVS Systolic Thickness MM 1.7 cm LVPW Diastolic Thickness MM 1.2 cm 0.6 - 1.0 / 0.6 - 0.9 cm LVPW Systolic Thickness MM 2.2 cm Aortic Annulus Diameter 3.9 cm LA Ao Ratio MM 0.8 MV E Point Septal Separation 0.2 cm DOPPLER AV Peak Velocity 88.0 cm/s LVOT Peak Velocity 77.0 cm/s AV Area Cont Eq vti 2.2 cm squared AV Area Cont Eq pk 2.7 cm squared MV Area PHT 4.2 cm squared MV E' Velocity 86.0 cm/s TV Peak E Velocity 46.0 cm/s Right Atrial Pressure 3.0 mmHg FINDINGS Left Ventricle Normal left ventricular size, systolic function and wall thickness, with no regional wall motion abnormalities. Left ventricular ejection fraction is estimated at 55 %. Rhythm precludes evaluation of diastolic function. Right Ventricle Normal right ventricular size and systolic function. RVSP could not be calculated due to incomplete tricuspid regurgitation velocity profile. Right Atrium Normal right atrial size. Left Atrium Normal left atrial size. Mitral Valve Structurally normal mitral valve. No mitral valve stenosis. No mitral valve regurgitation. Aortic Valve Structurally normal trileaflet aortic valve. No aortic valve stenosis. No aortic valve regurgitation. Tricuspid Valve Structurally normal tricuspid valve. No tricuspid valve regurgitation. No tricuspid valve stenosis. Pulmonic Valve Pulmonic valve not well visualized. No pulmonary valve regurgitation. Pericardium No pericardial effusion. Aorta Normal size aortic root and proximal ascending aorta. CONCLUSIONS 1. Normal left ventricular size, systolic function and wall thickness, with no regional wall motion abnormalities. Left ventricular ejection fraction is estimated at 55 %. 2. Normal right ventricular size and systolic function. 3. No significant valvular abnormality. 4. No pericardial effusion. 5. No prior similar studies to compare. Yajaira Palmer MD (Electronically Signed) Final Date: 27 September 2020 09:56 S
[2020-09-27 05:10] LABS: Platelet Count 205 10^3/cmm (130-400)
[2020-09-27] MEDS: aspirin 81 mg EC Tablet PO (05:23)
[2020-09-27] MEDS: fludrocortisone 0.1 mg Tablet PO (05:24)
--- NOTE | 2020-09-27 05:28 | ECG_ITS ---
[facility] Test Date: 2020-09-27 Pat Name: Yusuf Gonzales Department: Room: 112 Gender: Male Seasonal Tax Preparer: : 1955 Requested By: Yajaira Palmer Order Number: [id number] MD: Yajaira Palmer M.D. Interpretive Statements NAME OF STUDY: LEXISCAN SESTAMIBI STRESS TEST INDICATION: Atrial fibrillation, initiation of antiarrhythmic, history of CVA, hypertension hyperlipidemia PROCEDURE: At the baseline, the blood pressure was 113/88 mmHg, oxygen saturation 95% with a heart rate of 63 bpm. The electrocardiogram showed normal sinus rhythm, normal axis. Poor anterior R wave progression. The Lexiscan was infused over a period of 20 seconds. A total of 0.4 milligrams of Lexiscan was infused. The stress phase was continued for a total of 5 minutes. Heart rate at the end of the stress phase was 86 bpm, oxygen saturation 97% with a blood pressure of 152/101 mmHg. The EKG at the peak infusion revealed sinus rhythm with no significant ST-T wave changes. The study was terminated due to protocol completion. Sestamibi was injected 20 seconds after the Lexiscan infusion. Blood pressure at the end of the recovery phase was 121/85 mmHg, oxygen saturation 96% with a heart rate of 72 beats per minute. CONCLUSION: 1. No significant EKG changes with the LexiScan infusion 2. No LexiScan induced chest pain or cardiac arrhythmia. 3. Normal blood pressure and heart rate response. 4. Sestamibi/sestamibi perfusion scan pending; see separate report. Electronically Signed On 09-27-2020 16:04:16 CDT by Yajaira Palmer M.D. [email or web address]
[2020-09-27 05:29] LABS: Alanine Aminotransferase 25 U/L (0-41); Albumin Level 3.3 g/dL (3.5-5.2); Alkaline Phosphatase 50 IU/L (40-130); Anion Gap 12.2 (5-19); Aspartate Amino Transferase 19 U/L (0-40); Blood Urea Nitrogen 15 mg/dL (8-23); Calcium 8.3 mg/dL (8.5-10.5); Carbon Dioxide 26 mmol/L (22-29); Chloride 106 mmol/L (98-107); Globulin 2.6 g/dL (1.3-4.6); Glomerular Filtration Rate 43.7 mL/min (90-130); Glucose 105 mg/dL (65-115); Osmolality Calculated 291 mOsm/kg (285-295); Potassium 4.2 mmol/L (3.5-5.1); Sodium 140 mmol/L (136-145); Total Bilirubin 0.7 mg/dL (0.15-1.2); Total Protein 5.9 g/dL (6.6-8.7)
--- NOTE | 2020-09-27 07:00 | NMCV_ITS ---
NM murali perf SPECT r/s* [id number] Yusuf Gonzales Age: 65 Gender: M : 1955 Exam Date: 09/27/2020 06:57 Ordering Phys: Yajaira Palmer MD ([email or web address]) Technologist: ANTOINETTE Muñoz Exam Location: [facility] Indications: Atrial fibrillation, h/o CVA, Hypertension, Hyperlipidemia STRESS TEST [facility] IMAGE PROTOCOL Rest/Stress 1 Lexiscan Day Radiopharmaceutical Dose (mCi) Administration Site Administered by Rest: Tc-99m 10.7 IV ANTOINETTE Larson Sestamibi Stress:Tc-99m 32.9 IV ANTOINETTE Larson Sestamibi Rest: 27-Sep-2020 60 Discovery 630 Stress: 27-Sep-2020 30 Discovery 630 0.4mg Lexiscan. Images obtained in supine and prone position. SPECT RESULTS Technical Quality: Excellent Raw Data Analysis: Normal Image Corrections: No attenuation or motion correction applied Summed Stress Score: 1 Summed Rest Score: 4 Summed Difference Score: 0 PERFUSION FINDINGS Small sized perfusion abnormality of mild severity of mid inferior, mid to apical inferolateral wall on rest images with improved tracer uptake on supine and prone stress images. This is suggestive of attenuation artifact. FUNCTIONAL RESULTS (calculated via Gated SPECT) Stress Image LV EF (%): 58 Stress EDV (mL):102 TID: 0.88 Stress ESV (mL):43 FUNCTIONAL FINDINGS: The left ventricle is normal in size. Transient Ischemia Dilatation of 0.88. There is normal left ventricular systolic function. The left ventricular ejection fraction is normal with a value of 58%. There is normal left ventricular wall thickening with no regional wall motion abnormality. Normal end-diastolic and end-systolic volumes. IMPRESSIONS 1. Myocardial perfusion imaging is normal. Attenuation artifact noted in mid to apical inferior and inferolateral ring. 2. Overall left ventricular systolic function is normal without regional wall motion abnormalities. 3. The left ventricular ejection fraction is normal with a value of 58%. 4. Scan indicates low risk for cardiac events. Yajaira Palmer MD (Electronically Signed) Final Date: 27 September 2020 10:12 S
[2020-09-27] MEDS: regadenoson 0.4 Mg/5 ml Syringe IVP (08:00)
[2020-09-27] MEDS: ondansetron 2 mg/ML SDV 2 mL 4 MG IVP (08:04)
[2020-09-27] MEDS: metoprolol tartrate 25 mg Tablet PO (10:43)
[2020-09-27] MEDS: apixaban 5 mg Tablet PO (10:44)
[2020-09-27] MEDS: amiodarone 200 mg Tablet 400 MG PO (10:44)
[2020-09-27] MEDS: HYDROcodone-acetaminophen 10-325 mg Tablet 1 TAB PO (12:32)
--- NOTE | 2020-09-27 13:18 | PM.PN ---
Subjective Subjective: Interval history: He feels better. Medications: Reviewed: Yes Medication Review Details: Current Medications Acetaminophen (Acetaminophen 325 Mg Tablet) 650 mg PO Q6H PRN PRN Reason: Mild/Mod Pain Or Temp >/= 101 Hydrocodone Bitart/Acetaminophen (Hydrocodone-Acetaminophen 10-325 Mg Tablet) 1 tab PO DAILY PRN PRN Reason: chronic back pain Last Admin: 09/27/20 12:32 Dose: 1 tab Documented by: Allopurinol (Allopurinol 100 Mg Tablet) 100 mg PO BEDTIME PENDING SALE TO [facility] Last Admin: 09/26/20 21:33 Dose: 100 mg Documented by: Aminophylline (Aminophylline 25 Mg/Ml Sdv 10 Ml) 25 mg IVP Q2M PRN PRN Reason: see dose instructions Stop: 09/28/20 07:17 Amiodarone HCl (Amiodarone 200 Mg Tablet) 400 mg PO TID PENDING SALE TO [facility] Last Admin: 09/27/20 10:44 Dose: 400 mg Documented by: Apixaban (Apixaban 5 Mg Tablet) 5 mg PO BID@0900,2100 PENDING SALE TO [facility] Last Admin: 09/27/20 10:44 Dose: 5 mg Documented by: Aspirin (Aspirin 81 Mg Ec Tablet) 81 mg PO QAM PENDING SALE TO [facility] Last Admin: 09/27/20 05:23 Dose: 81 mg Documented by: Atorvastatin Calcium (Atorvastatin 40 Mg Tablet) 80 mg PO QPM PENDING SALE TO [facility] Last Admin: 09/26/20 17:47 Dose: 80 mg Documented by: Fludrocortisone Acetate (Fludrocortisone 0.1 Mg Tablet) 0.1 mg PO QAM PENDING SALE TO [facility] Last Admin: 09/27/20 05:24 Dose: 0.1 mg Documented by: Lanolin (Lanolin Oint 7 Gm) 1 applic TOPICAL PRN PRN PRN Reason: DRYNESS Last Admin: 09/26/20 06:16 Dose: 1 applic Documented by: Metoprolol Tartrate (Metoprolol Tartrate 25 Mg Tablet) 25 mg PO BID@0900,2100 PENDING SALE TO [facility] Last Admin: 09/27/20 10:43 Dose: 25 mg Documented by: Nitroglycerin (Nitroglycerin 0.4 Mg Sublingual Tablet) 0.4 mg SUBLINGUAL Q5M PRN PRN Reason: CHEST PAIN Stop: 09/28/20 07:17 Ondansetron HCl (Ondansetron 2 Mg/Ml Sdv 2 Ml) 4 mg IVP Q8H PRN PRN Reason: vomiting, or N/V if npo Ondansetron HCl (Ondansetron 2 Mg/Ml Sdv 2 Ml) 4 mg IVP Q2M PRN PRN Reason: NAUSEA Last Admin: 09/27/20 08:04 Dose: 4 mg Documented by: Trazodone HCl (Trazodone 100 Mg Tablet) 100 mg PO BEDTIME RAJNI Last Admin: 09/26/20 21:34 Dose: 100 mg Documented by: Vitals/I&O/Wt Last Vital Signs Temp 97.4 F L 09/27/20 08:00 Pulse 72 09/27/20 08:16 Resp 18 09/27/20 08:00 BP 121/85 09/27/20 08:16 Pulse Ox 98 09/27/20 08:00 09/26/20 09/27/20 09/27/20 22:59 06:59 14:59 Intake Total 940 / 2489.349 240 / 240 Output Total 400 / 1000 Balance 940 / 1889.349 -400 / 1489.349 240 / 240 Weight last 48 hrs Weight 188 lb Weight 186 lb 3.2 oz Physical Exam Narrative: EXAM NARRATIVE: Gen: NAD, ABAN, sitting comfortably in bed HEENT: PEERL, EOMI, No pallor or icterus RS: CTAB/L, No wheezing, rales or rhonci CVS: S1, S2 regular, No murmur heard CLINICAL RESEARCH ASSOCIATE: AAOx 3, No FND Skin: No rashes noted Psych: Normal mood and affect Data : 09/27/20 04:43 09/27/20 04:43 A&P Assessment and plan (1) Atrial fibrillation with rapid ventricular response: Newly diagnosed. >48 hr since onset [id number]=4/9, 1 for HTN and 2 for prior stroke -echo with normal LV function and no significant valvular abnormality. No ischemia on stress test. Converted to SR. He feels better. Discharge on Eliquis 5 mg BID, metoprolol tartrate 12.5 mg BID and amiodarone 200 mg BID for 2 weeks and then 200 mg daily. -f/u with me in 1-2 weeks. -BP/HR log x 2 weeks Status: Acute (2) Hypertension: stop amlodipine and losartan-HCTZ on discharge Status: Acute Qualifiers: Hypertension type: essential hypertension Qualified Code(s): I10 - Essential (primary) hypertension (3) Hyperlipidemia: Status: Acute Qualifiers: Hyperlipidemia type: mixed hyperlipidemia Qualified Code(s): E78.2 - Mixed hyperlipidemia (4) History of cerebrovascular accident: continue ASA and statin. -STop plavix on discharge Status: Acute (5) Chronic low back pain: Status: Acute Qualifiers: Back pain laterality: unspecified Additional A&P Information NSTEMI : Likley type 2 in setting of atrial fibrillation with RVR: No recent stress testing and h/o CVA, HTN, HLD. He will benefit from stress testing for further risk stratification h/o orthostatic dizziness: Patient denies. May continue florinef for now CHRISTIN : No h/o CKD. however no prior renal function available for comparison. BMP in 1 week Thank you for allowing me to participate in patient's care. Please feel free to call with questions or concerns. Attestations Medical Necessity Statement*: stable to be discharged Time Spent in Patient Care: Greater than 35 minutes (>than 50% of time spent in counselling and/or direct pt care on unit). Coding Level of Care Code Acute Configuration Management Manager for Gale Fwd Diagnoses Atrial fibrillation with rapid ventricular response I48.91 Hypertension I10 Hypertension type: essential hypertension Hyperlipidemia E78.2 Hyperlipidemia type: mixed hyperlipidemia History of cerebrovascular accident Z86.73 Chronic low back pain M54.5; G89.29 Back pain laterality: unspecified
--- NOTE | 2020-09-27 13:21 | ECG_ITS ---
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1955 Requested By: Yajaira Palmer Order Number: [id number] Tavo MD: STEFFANIE TOUSSAINT Measurements Intervals [place] Rate: 60 P: 29 [place]: 181 QRS: 10 QRSD: 90 T: 71 QT: 420 QTc: 422 Interpretive Statements SINUS RHYTHM POSSIBLE LEFT ATRIAL ENLARGEMENT [-0.1mV P WAVE IN V1/V2] MINIMAL ST DEPRESSION [0.025+ mV ST DEPRESSION] Compared to ECG 09/25/2020 18:25:38 Atrial fibrillation no longer present Aberrant conduction of supraventricular beat(s) no longer present Ventricular premature complex(es) no longer present ST (T wave) deviation still present Electronically Signed On 09-27-2020 14:28:45 CDT by STEFFANIE TOUSSAINT [id number]
--- NOTE | 2020-09-27 14:19 | P.DS_ITS ---
Discharge Providers Date of Admission: 09/25/20 13:11 Date of Discharge: September 27, 2020 Attending Provider at Admission: Carmen Dhaliwal Attending Provider at Discharge: Carmen Dhaliwal Primary Care Provider: Kristian Bertrand MD Diagnoses at Discharge Discharge Diagnosis (1) Atrial fibrillation with rapid ventricular response: Status: Resolved (2) Hypertension: Status: Acute Qualifiers: Hypertension type: essential hypertension Qualified Code(s): I10 - Essential (primary) hypertension (3) Hyperlipidemia: Status: Acute Qualifiers: Hyperlipidemia type: mixed hyperlipidemia Qualified Code(s): E78.2 - Mixed hyperlipidemia (4) History of cerebrovascular accident: Status: Acute (5) Chronic low back pain: Status: Acute Qualifiers: Back pain laterality: unspecified Reason for Visit Reason for Visit: LOW BP Hospital Course Hospital Course 65-year-old with a past medical history significant for hypertension, dyslipidemia, chronic back pain, insomnia, a CVA without any residual deficits he has presented to the hospital with palpitations. Stated this was associated with episodes of dizziness. Denies chest pain. Cannot recall exact diagnosis however has been told of irregular heartbeat in the past. Does not take any chronic medications for this. No recent fever, chills, nausea or vomiting. Upon arrival to emergency roomPatients initial laboratory workup showed a WBC 7.4, hemoglobin 15.3, hematocrit 44.6 and a platelet count of 269. Sodium 136, potassium 4.1, chloride 100, bicarb 22, BUN 17 and creatinine 1.5. No prior labs to compare. LFTs were within normal limits. Density -12.7. ProBNP was elevated at 4975. COVID-19 rapid antigen was negative.Imaging studies included chest x-ray which was negative. EKG showed atrial fibrillation with rapid ventricular response.Patient was started on amiodarone drip. In addition heparin drip was added. Patient was awake alert without any discomfort at the time of my evaluation.Upon admission to the hospital patient was transitioned to oral amiodarone, initially given digoxin and also started on metoprolol.Echocardiogram performed showed preserved EF at 55% without any evidence of regional wall motion abnormality.Subsequently a nuclear stress test was performed which did not show any evidence of Lexiscan induced chest pain or cardiac arrhythmia or evidence of reversible ischemia. Patient eventually converted to normal sinus rhythm. Initial heparin drip was transitioned to Eliquis 5 mg oral b.i.d.. Amiodarone 200 mg oral b.i.d. x7 days and then daily was prescribed in addition to metoprolol 12.5 mg b.i.d.. In respect to patients renal failure is likely to this was a chronic condition. No prior lab workup to review. Initially started on IV fluids however no improvement in renal dysfunction. Repeat BMP was ordered outpatient. Cleared for discharge by Cardiology. Outpatient follow-up with primary care physician and Cardiology was recommended. Physical Exam Narrative: EXAM NARRATIVE: General- alert awake and oriented x3 HEENT-grossly unremarkable CVS -Normal sinus rhythm Chest -clear to auscultation bilaterally Abdomen -soft nontender nondistended Extremities -no lower extremity edema Discharge Data Data Completed and Pending: Completed Studies During Hospitalization Category Date Time Status Sestamibi Stress Test Request Routi ne Exams 09/27/20 05:28 Draft XR chest 1V beth ble [id number] Stat Exams 09/25/20 11:20 Completed NM murali perf SPECT r/s* [id number] Routin e Nuc Med 09/27/20 07:00 Completed CV. echo complete * [id number] Routine Ultrasound 09/27/20 05:00 Completed Pending at discharge Category Date Time Status Platelet Count Q2 D Lab 09/29/20 04:00 Ordered Labs from last 24 hours 09/27/20 09/27/20 09/26/20 04:43 04:43 21:02 Plt Count 205 APTT 33.5 D Sodium 140 Potassium 4.2 Chloride 106 Carbon Dioxide 26 Anion Gap 12.2 BUN 15 Creatinine 1.6 H GFR Calculation 43.7 L Glucose 105 Calculated Osmolal ity 291 Calcium 8.3 L Magnesium 2.0 Total Bilirubin 0.7 AST 19 ALT 25 Alkaline Phosphata se 50 Total Protein 5.9 L Albumin 3.3 L Globulin 2.6 09/26/20 13:50 Plt Count APTT 68.3 H Sodium Potassium Chloride Carbon Dioxide Anion Gap BUN Creatinine GFR Calculation Glucose Calculated Osmolal ity Calcium Magnesium Total Bilirubin AST ALT Alkaline Phosphata se Total Protein Albumin Globulin Vitals: Last Vital Signs Temp 97.4 F L 09/27/20 08:00 Pulse 62 09/27/20 12:00 Resp 18 09/27/20 12:00 BP 107/70 09/27/20 12:00 Pulse Ox 100 09/27/20 12:00 Discharge Plan Discharge Patient Disposition: Home Condition: Stable Prescriptions: New Eliquis 5 mg Tablet 5 mg PO BID@0900,2100 Qty: 60 RF: 0 Pacerone 200 mg tablet 200 mg PO BID Qty: 30 RF: 0 metoprolol tartrate 25 mg tablet 12.5 mg PO BID Qty: 30 RF: 0 Continued hydrocodone-acetaminophen 10-325 mg tablet 1 tab PO DAILY PRN (Reason: chronic back pain) 30 Days Qty: 30 RF: 0 Stool Softener 100 mg Capsule 100 mg PO BEDTIME RF: 0 cyclobenzaprine 5 mg Tablet 2.5 mg PO PRN RF: 0 omega-3 fatty acids Capsule 1 cap PO QAM RF: 0 atorvastatin 40 mg tablet 80 mg PO QPM RF: 0 allopurinol 100 mg tablet 100 mg PO BEDTIME RF: 0 Adult Aspirin Regimen 81 mg tablet,delayed release (DR/EC) 81 mg PO QAM RF: 0 trazodone 100 mg tablet 100 mg PO BEDTIME RF: 0 fludrocortisone 0.1 mg tablet 0.1 mg PO QAM RF: 0 Discontinued amlodipine 10 mg tablet 5 mg PO QAM RF: 0 clopidogrel [Plavix] 75 mg tablet 75 mg PO QAM RF: 0 losartan-hydrochlorothiazide 50-12.5 mg tablet 0.5 tab PO QAM RF: 0 Discharge Orders: Discharge Order (Routine); Ordered 09/27/20 Ordered By: Carmen Dhaliwal Referrals: Kristian Bertrand MD [Primary Care Provider] - 10/08/20 7:30 am (You have a hospital followup with Dr. Bertrand at [facility] on October 08at 7:30am) Yajaira Palmer MD [Physician] - 10/11/20 9:45 am (You have a cardiology followup at [facility] with Dr. Palmer on October 11 at 9:45am) Discharge Diet: Cardiac Discharge Activity: Resume usual activity Patient Instructions: Metoprolol (By mouth), Amiodarone (By mouth), Apixaban (By mouth), Atrial Flutter (DC), Opioid Safety Activity Restrictions/Additional Instructions: return to hospital if any recurrence of palpitations or new symptoms. Discharge Attestations Time Spent in Discharge Care*: greater than 30 min Specific Discharge Activities: educating patient, discussing with pcp/other providers, discussing with caser in/social workers/dc planners, documenting/other paperwork and evaluating patient/reviewing data Status at Discharge: Cognitive status at discharge: cognitively intact , Behavioral status at discharge: cooperative , Functional status at discharge: independent ambulation Overall status at discharge: patient is back to baseline Quality Metrics Clinical Quality Measures During this hospital stay, did patient experience: None Coding Level of Care Code Acute Chg FW DC note Diagnoses Atrial fibrillation with rapid ventricular response I48.91 Hypertension I10 Hypertension type: essential hypertension Hyperlipidemia E78.2 Hyperlipidemia type: mixed hyperlipidemia History of cerebrovascular accident Z86.73 Chronic low back pain M54.5; G89.29 Back pain laterality: unspecified
--- NOTE | 2020-09-27 14:22 | DCPLANNER ---
[facility] was closed and no one left in back office so I had to fax info for appointment
== END 2020-09-27 16:00 | disposition home or self-care (01) | DRG 281 ==
LOC: ER 12:58 → ER IP 16:52 → ICU 22:06 → CSU 09-26 16:41
PROVIDERS: Hospitalist; Internal Medicine Cardiovascular Disease; Admitting Provider Hospitalist; Emergency Provider Emergency Medicine; PCP Family Medicine Adult Medicine; Visit Provider Hospitalist
DX: I48.91 Unspecified atrial fibrillation (principal); I21.A1 Myocardial infarction type 2; N17.9 Acute kidney failure, unspecified; I10 Essential (primary) hypertension; E78.2 Mixed hyperlipidemia; G89.29 Other chronic pain; M54.5 Low back pain; G47.00 Insomnia, unspecified; Z86.73 Personal history of transient ischemic attack (TIA), and cerebral infarction without residual deficits; M10.9 Gout, unspecified; Z87.891 Personal history of nicotine dependence; I95.1 Orthostatic hypotension; Z79.82 Long term (current) use of aspirin; Z79.891 Long term (current) use of opiate analgesic
CPT/HCPCS: 36415; 71045; 78452; 80053; 80061; 81003; 83036; 83735; 83880; 84443; 84484; 85025; 85049; 85610; 85730; 87426; 93005; 93017; 93306; 96365; 96366; 96367; 96375; 96376; 99291; A9500; J0282; J1160; J1644; J2405; J2785; J7030; J7060

== ENCOUNTER → 2020-12-09 12:10 | Outpatient (BNVA) | payer BC, SELFPAY | PROVIDERS: PCP Family Medicine Adult Medicine; Visit Provider Internal Medicine Cardiovascular Disease | DX: Z51.81 Encounter for therapeutic drug level monitoring (principal); Z79.899 Other long term (current) drug therapy; I48.0 Paroxysmal atrial fibrillation; E78.2 Mixed hyperlipidemia; I10 Essential (primary) hypertension; Z86.73 Personal history of transient ischemic attack (TIA), and cerebral infarction without residual deficits; M54.5 Low back pain; G89.29 Other chronic pain | CPT/HCPCS: 80053; 84443; 85025 ==

== ENCOUNTER → 2021-06-10 09:44 | Outpatient (BNVA) | payer MEDICARE, SELFPAY | PROVIDERS: PCP Family Medicine Adult Medicine; Visit Provider Internal Medicine Cardiovascular Disease | DX: I48.0 Paroxysmal atrial fibrillation (principal); I25.10 Atherosclerotic heart disease of native coronary artery without angina pectoris; I10 Essential (primary) hypertension | CPT/HCPCS: 80053; 80061; 84443; 99214 ==

== ENCOUNTER → 2021-06-18 09:47 | Outpatient (BNVA) | payer MEDICARE, SELFPAY | PROVIDERS: PCP Family Medicine Adult Medicine; Visit Provider Internal Medicine Cardiovascular Disease | DX: I48.91 Unspecified atrial fibrillation (principal) | CPT/HCPCS: 93005 ==

== ENCOUNTER → 2021-12-15 14:06 | Outpatient (BNVA) | payer MEDICARE, SELFPAY | PROVIDERS: PCP Family Medicine Adult Medicine; Visit Provider Internal Medicine Cardiovascular Disease | DX: I48.0 Paroxysmal atrial fibrillation (principal); Z79.01 Long term (current) use of anticoagulants; E78.2 Mixed hyperlipidemia; I10 Essential (primary) hypertension; Z86.73 Personal history of transient ischemic attack (TIA), and cerebral infarction without residual deficits; G89.29 Other chronic pain; M54.50 Low back pain, unspecified | CPT/HCPCS: 99214 ==

== ENCOUNTER → 2022-02-13 15:32 | Outpatient (BNVA) | payer MEDICARE, SELFPAY | PROVIDERS: PCP Family Medicine Adult Medicine; Visit Provider Family Medicine Adult Medicine | DX: I10 Essential (primary) hypertension (principal); N18.30 Chronic kidney disease, stage 3 unspecified; M10.9 Gout, unspecified; I48.0 Paroxysmal atrial fibrillation; N40.1 Benign prostatic hyperplasia with lower urinary tract symptoms; I48.91 Unspecified atrial fibrillation; Z00.00 Encounter for general adult medical examination without abnormal findings | CPT/HCPCS: 80053; 84443; 84550; 85025; G0103 ==

== ENCOUNTER 2022-03-04 01:37 | Observation (INO) | payer MEDICARE, SELFPAY ==
[2022-03-04] VITALS (17 sets, daily range): BP systolic 93–141; BP diastolic 72–102; PULSE 58–156; RESP 11–23; TEMP 36.4–36.8; O2SAT 94–100; BMI 26.4
--- NOTE | 2022-03-04 02:01 | ECG_ITS ---
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 Measurements Intervals [place] Rate: 156 P: 0 ME: 0 QRS: 18 QRSD: 94 T: 103 QT: 282 QTc: 455 Interpretive Statements ATRIAL FIBRILLATION WITH RAPID VENTRICULAR RESPONSE ST DEPRESSION, CONSIDER SUBENDOCARDIAL INJURY [0.1+ mV ST DEPRESSION] ABNORMAL QRS-T ANGLE [QRS-T AXIS DIFFERENCE > 60] CRITICAL TEST RESULT Compared to ECG 09/27/2020 13:29:40 Sinus rhythm no longer present ST (T wave) deviation still present Electronically Signed On 03-04-2022 18:07:32 ASSEMBLER TRIM by Catie Noe M.D. [id number]
--- NOTE | 2022-03-04 02:01 | XRR_ITS ---
PROCEDURE INFORMATION: Exam: XR Chest Exam date and time: 03/04/2022 2:06 AM Age: 67 years old Clinical indication: Pain; Shortness of breath; Patient HX: C/O chest pressure with SOB. History of afib. TECHNIQUE: Imaging protocol: Radiologic exam of the chest. Views: 1 view. COMPARISON: CR XR chest 1V portable [id number] 09/25/2020 11:44 AM FINDINGS: Lungs: Mildly decreased lung volumes with mild accentuation of the pulmonary vascularity. Mild left basilar atelectasis/interstitial opacities. No right lung airspace opacities. Pleural spaces: No pleural effusion. No pneumothorax. Heart/Mediastinum: Normal heart size. Normal mediastinum. Midline trachea. Bones/joints: No acute osseous abnormalities seen. Mild shoulder degenerative changes are seen. Soft tissues: Multiple external densities are seen overlying the chest, limiting assessment. XR/XR chest 1V portable [id number] IMPRESSION: Mildly decreased lung volumes with mild accentuation of the pulmonary vascularity. Mild left basilar atelectasis/interstitial opacities.
--- NOTE | 2022-03-04 02:04 | ED_ITS ---
HPI - Arrhythmia/Palpitations General: Chief Complaint: Arrhythmia/Palpitations Stated Complaint: irregular hr Time Seen by Provider: 03/04/22 01:38 Source: patient Mode of arrival: ambulatory Limitations: no limitations History of Present Illness: 67-year-old male has a history of A. fib he states that tonight at midnight he started having some palpitations having some slight chest pain and dyspnea and checked his pulse and was in A. fib with RVR heart rate is in the 150s at home is 150s here as well. He denies any fever denies any vomiting or diarrhea he denies any pain currently. REPLACED BY [facility] PFSH: Medical History (Updated 03/04/22 @ 03:18 by David Guajardo MD) Atrial fibrillation BPH loc w urin obs/LUTS Chronic low back pain CKD (chronic kidney disease) stage 3, GFR 30-59 ml/min CVD (cardiovascular disease) Decreased calculated GFR Gout Hx TIA/stroke w/o resid (~2019) Hyperlipidemia Hypertension Insomnia disorder Well adult health check Surgical History History of surgery on wrist Family History Mother COPD (chronic obstructive pulmonary disease) Hypertension Lung disease Other CAD (coronary artery disease) Denies family history of Diabetes Clotting disorder Dementia Hyperlipidemia Chronic kidney disease (CKD) Anesthesia complication Bleeding disorder Cancer Stroke Social History Smoking and tobacco status: never smoked Alcohol intake: current Alcohol intake frequency: 0-2 Drinks per Day Alcohol type: beer Caregiver/support person: No Lives independently: Yes Household members: spouse Marital status: Number of children: 3 Number of grandchildren: 3 Highest education level completed: Some College, No Degree service: No Current occupational status: retired Pets and animals: Yes Pets & animals: dog(s) History of recent travel: No Current gender identity: Male Nadine/Spiritism: Baptist Special nadine needs: No Physical Exam Const: COMMON NORMALS: patient oriented x3 HENMT: COMMON NORMALS: normocephalic and atraumatic HEAD & SCALP: normocephalic and atraumatic Eye: COMMON NORMALS: Equal, round and reactive pupils present and EOMs intact bilaterally PUPIL: Yes Equal, round and reactive pupils present Neck/C-Spine: COMMON NORMALS: full ROM and supple Chest: COMMONS NORMALS: normal inspection of the chest and normal palpation of entire chest wall Resp: COMMON NORMALS: normal respiratory effort, No retractions, No use of accessory muscles and clear to auscultation bilaterally AUSCULTATION: clear to auscultation bilaterally Cardio: COMMON NORMALS: No murmurs present (Cardio) RATE: tachycardic RHYTHM: abnormal rhythm irregularly irregular GI: COMMON NORMALS: Normal to inspection, nondistended, normoactive bowel sounds present, Soft to palpation, non-tender and no masses PALPATION: Yes Soft to palpation Extremity: COMMON NORMALS: normal to inspection and full ROM Neuro: COMMON NORMALS: patient oriented x3, moves all extremities and no focal motor deficits Psych: COMMON NORMALS: mental status grossly normal, Normal thought process present and cooperative THOUGHT PROCESS: Normal thought process present Skin: COMMON NORMALS: no rashes or lesions noted and no wounds GENERAL SKIN EXAM: no rashes or lesions noted Course Vital Signs: Vital signs: Vital Signs Temperature 97.5 F L 03/04/22 01:46 Pulse Rate 119 H 03/04/22 03:08 Respiratory Rate 15 03/04/22 03:08 Blood Pressure 123/90 03/04/22 03:08 Pulse Oximetry 97 03/04/22 03:08 Oxygen Delivery Me thod 03/04/22 02:48 MDM - Arrhythmia/Palpitations Medical Decision Making Patient presents here with atrial flutter with RVR he had to be started on a Cardizem drip due to continued tachycardia he is otherwise well-appearing spoke to hospitalist will admit. Lab Data 03/04/22 02:07 03/04/22 02:07 Laboratory Results WBC 9.4 10^3/uL (4.0-10.0) 03/04/22 02:07 RBC 4.50 10^6/uL (4.1-5.3) 03/04/22 02:07 Hgb 14.1 g/dL (11.7-16.6) 03/04/22 02:07 Hct 41.4 % (42.0-52.0) L 03/04/22 02:07 MCV 92.0 fl (80-94) 03/04/22 02:07 MCH 31.3 pg (28.0-34.0) 03/04/22 02:07 MCHC 34.1 g/dL (30.0-36.0) 03/04/22 02:07 RDW 12.1 % (12.1-15.1) 03/04/22 02:07 Plt Count 277 10^3/cmm (130-400) 03/04/22 02:07 MPV 9.3 fL (7.4-10.4) 03/04/22 02:07 Neut % (Auto) 52.5 % 03/04/22 02:07 Lymph % (Auto) 34.3 % 03/04/22 02:07 [place] % (Auto) 12.0 % 03/04/22 02:07 Eos % (Auto) 0.0 % 03/04/22 02:07 Baso % (Auto) 1.0 % 03/04/22 02:07 Neut # (Auto) 4.96 10^3/uL (1.8-7.7) 03/04/22 02:07 Lymph # (Auto) 3.2 10^3/uL (0.8-4.8) 03/04/22 02:07 [place] # (Auto) 1.1 10^3/uL (0.2-0.9) H 03/04/22 02:07 Eos # (Auto) 0.0 10^3/uL (0.0-0.8) 03/04/22 02:07 Baso # (Auto) 0.1 10^3/uL (0.0-0.1) 03/04/22 02:07 Nucleated RBC % (auto) 0 % 03/04/22 02:07 Nucleated RBCs # 0.0 /100WBC 03/04/22 02:07 PT 15.30 SECONDS (12.1-14.9) H 03/04/22 02:07 INR 1.17 (0.8-1.2) 03/04/22 02:07 Sodium 139 mmol/L (136-145) 03/04/22 02:07 Potassium 3.9 mmol/L (3.5-5.1) 03/04/22 02:07 Chloride 103 mmol/L (98-107) 03/04/22 02:07 Carbon Dioxide 24 mmol/L (22-29) 03/04/22 02:07 Anion Gap 15.9 (5-19) 03/04/22 02:07 BUN 20 mg/dL (8-23) 03/04/22 02:07 Creatinine 1.5 mg/dL (0.7-1.2) H 03/04/22 02:07 GFR Calculation 46.8 mL/min (90-130) L 03/04/22 02:07 Glucose 120 mg/dL (65-115) H 03/04/22 02:07 Calculated Osmolality 292 mOsm/kg (285-295) 03/04/22 02:07 Calcium 9.4 mg/dL (8.5-10.5) 03/04/22 02:07 Total Bilirubin 0.5 mg/dL (0.15-1.2) 03/04/22 02:07 AST 17 U/L (0-40) 03/04/22 02:07 ALT 17 U/L (0-41) 03/04/22 02:07 Alkaline Phosphatase 58 U/L (40-130) 03/04/22 02:07 Troponin T Baseline 8 ng/L (0-15) 03/04/22 02:07 Total Protein 7.1 g/dL (6.6-8.7) 03/04/22 02:07 Albumin 4.1 g/dL (3.5-5.2) 03/04/22 02:07 Globulin 3.0 g/dL (1.3-4.6) 03/04/22 02:07 EKG Data EKG 1: I personally reviewed and interpreted this EKG as follows: EKG interpretation date: 03/04/22 EKG interpretation time: 01:48 Interpretation: afib with rvr hr [address] or t wave abnormalities qrs 94 qtc 370 Critical Care Time Critical Care Time: Critical Care Time: Yes Total Critical Care Time: 45 Attestation: The high probability of a clinically significant, sudden or life threatening deterioration of the patient's cv system(s) required my full and direct attention, intervention and personal management. The critical care time is as shown. This time is in addition to time spent performing any reported procedures but includes the following: [x] Data and vital sign review and interpretation [x] Patient assessment, examination and intervention [x] Documentation [x] Medication orders and management Discharge Plan Discharge Patient Disposition: Admitted As Inpatient Clinical Impression: Atrial fibrillation with rapid ventricular response Condition: Stable Prescriptions: No Action cetirizine [24Hour Allergy] 10 mg tablet 10 mg PO DAILY cyclobenzaprine 5 mg tablet 2.5 mg PO PRN Qty: 30 1RF fludrocortisone 0.1 mg tablet 0.05 mg PO QAM PRN (Reason: low BP) tamsulosin 0.4 mg capsule 0.4 mg PO DAILY Qty: 90 0RF amlodipine 5 mg tablet 5 mg PO .HS Qty: 90 3RF trazodone 100 mg tablet See Rx Instructions .ROUTE .COMPLEX Qty: 90 1RF Dose Instruction: TAKE 1 TABLET BY MOUTH EVERY DAY AT BEDTIME NEEDED FOR INSOMNIA Rx Instructions: TAKE 1 TABLET BY MOUTH EVERY DAY AT BEDTIME NEEDED FOR INSOMNIA Eliquis 5 mg tablet 5 mg PO BID Qty: 180 3RF docusate sodium 100 mg capsule See Rx Instructions .ROUTE .COMPLEX Qty: 90 1RF Dose Instruction: TAKE 1 CAPSULE BY MOUTH EVERY DAY AT BEDTIME FOR CONSTIPATION Rx Instructions: TAKE 1 CAPSULE BY MOUTH EVERY DAY AT BEDTIME FOR CONSTIPATION flecainide 50 mg tablet 50 mg PO Q12H Qty: 60 6RF atorvastatin 40 mg tablet 40 mg PO DAILY 100 Days Qty: 100 3RF hydrocodone-acetaminophen 10-325 mg tablet 1 tab PO DAILY PRN (Reason: chronic back pain) 30 Days Qty: 30 0RF Rx Instructions: refill on or after his 30 day interval. omega-3 fatty acids Capsule 1 cap PO QAM Referrals: Kristian Bertrand MD [Primary Care Provider] - Coding Level of Care Code ED Cigarette Making Machine Catcher for Chg Fwd Exam Comprehensive
[2022-03-04] MEDS: sodium chloride 0.9% 1,000 ML 999 ML IV (02:10)
[2022-03-04 02:11] LABS: Basophils # 0.1 10^3/uL (0.0-0.1); Hematocrit 41.4 % (42.0-52.0); Hemoglobin 14.1 g/dL (11.7-16.6); Lymphocytes # 3.2 10^3/uL (0.8-4.8); Lymphocytes % 34.3 %; Mean Corpuscular HGB Conc 34.1 g/dL (30.0-36.0); Mean Corpuscular Hemoglobin 31.3 pg (28.0-34.0); Mean Platelet Volume 9.3 fL (7.4-10.4); Monocytes # 1.1 10^3/uL (0.2-0.9); Neutrophils # 4.96 10^3/uL (1.8-7.7); Neutrophils % 52.5 %; Nucleated Red Blood Cells % 0 %; Platelet Count 277 10^3/cmm (130-400); Red Cell Distribution Width 12.1 % (12.1-15.1); White Blood Count 9.4 10^3/uL (4.0-10.0)
[2022-03-04 02:28] LABS: INR 1.17 (0.8-1.2)
[2022-03-04] MEDS: dilTIAZem 5 mg/mL SDV 5 mL 10 MG IVP (02:35)
[2022-03-04 02:41] LABS: Alanine Aminotransferase 17 U/L (0-41); Albumin Level 4.1 g/dL (3.5-5.2); Alkaline Phosphatase 58 U/L (40-130); Anion Gap 15.9 (5-19); Aspartate Amino Transferase 17 U/L (0-40); Blood Urea Nitrogen 20 mg/dL (8-23); Calcium 9.4 mg/dL (8.5-10.5); Carbon Dioxide 24 mmol/L (22-29); Chloride 103 mmol/L (98-107); Glomerular Filtration Rate 46.8 mL/min (90-130); Glucose 120 mg/dL (65-115); Osmolality Calculated 292 mOsm/kg (285-295); Potassium 3.9 mmol/L (3.5-5.1); Sodium 139 mmol/L (136-145); Total Bilirubin 0.5 mg/dL (0.15-1.2); Total Protein 7.1 g/dL (6.6-8.7); Troponin(5th) Baseline 8 ng/L (0-15)
[2022-03-04] MEDS: dilTIAZem 100 MG in sodium chloride 0.9% (add-van) 100 ML 10 MG IV (03:08)
--- NOTE | 2022-03-04 04:43 | P.HP_ITS ---
Providers/Chief Complaint Primary Care Provider: Kristian Bertrand MD Chief Complaint: irregular hr History of Present Illness Yusuf Gonzales is a 67 year old male history of A. fib, on Eliquis and flecainide, follows up with Dr. Palmer Hypertension, CVA, presented with chief complaint of palpitation. Patient has moved from [facility] to [place] to enjoy his prison , patient is stating that the main reason he came to the hospital is palpitations, he was about to go to his bed when he started experiencing palpitations which made him very uncomfortable he did not express any fever, chest pain, shortness of breath, nausea, vomiting. In the ER he received 10 mg of Cardizem which did not control his heart rate and she was put on Cardizem drip hospitalist was requested to admit him for A. fib RVR Potassium 3.9 I requested mag level TSH Patient has chronic kidney disease creatinine around baseline Chest x-ray unremarkable Review of Systems Const: Denies: fever(s) Eyes: Denies: change in vision ENMT: Denies: throat pain Card: Denies: chest pain Resp: Denies: dyspnea GI: Denies: abdominal pain : Denies: urinary frequency Musc: Denies: neck pain Skin/Breast: Denies: rash Neuro: Denies: headache(s) Psych: Reports: anxiety Endo: Denies: polyuria Guy/Lymph: Denies: easy bruising All/Imm: Denies: urticaria Medications/Allergies Home Medications Medication Instructions Recorded Confirmed Last Taken Type omega-3 fatty acids 1 cap PO QAM 09/25/20 02/13/22 09/25/20 History fludrocortisone 0.1 mg tablet 0.05 mg PO QAM PRN low BP 12/09/20 02/13/22 Unknown History cyclobenzaprine 5 mg tablet 2.5 mg PO PRN muscle spasms/pain 02/26/21 02/13/22 Unknown Rx #30 tabs cetirizine 10 mg tablet (24Hour 10 mg PO DAILY 06/10/21 02/13/22 Unknown History Allergy) amlodipine 5 mg tablet 5 mg PO .HS #90 tabs 06/23/21 02/13/22 Unknown Rx trazodone 100 mg tablet See Rx Instructions .Route 10/14/21 02/13/22 Unknown Rx .COMPLEX #90 tabs apixaban 5 mg tablet (Eliquis) 5 mg PO BID #180 tabs 10/27/21 02/13/22 Unknown Rx docusate sodium 100 mg capsule See Rx Instructions .Route 11/10/21 02/13/22 Unknown Rx .COMPLEX #90 caps flecainide 50 mg tablet 50 mg PO Q12H #60 tabs 12/31/21 02/13/22 Unknown Rx atorvastatin 40 mg tablet 40 mg PO DAILY fats and 01/20/22 02/13/22 Unknown Rx cholesterol 100 days #100 tabs tamsulosin 0.4 mg capsule 0.4 mg PO DAILY #90 caps 02/13/22 02/13/22 Unknown Rx hydrocodone 10 mg-acetaminophen 1 tab PO DAILY PRN chronic back 02/19/22 Unknown Rx 325 mg tablet pain 30 days #30 tabs Allergies Allergy/AdvReac Type Severity Reaction Status Date / Time morphine AdvReac Intermediate ADR-Itching Verified 02/13/22 14:55 PFSH Acute PFSH: Medical History Atrial fibrillation BPH loc w urin obs/LUTS Chronic low back pain CKD (chronic kidney disease) stage 3, GFR 30-59 ml/min CVD (cardiovascular disease) Decreased calculated GFR Gout Hx TIA/stroke w/o resid (~2019) Hyperlipidemia Hypertension Insomnia disorder Well adult health check Surgical History History of surgery on wrist Family History Mother COPD (chronic obstructive pulmonary disease) Hypertension Lung disease Other CAD (coronary artery disease) Denies family history of Diabetes Clotting disorder Dementia Hyperlipidemia Chronic kidney disease (CKD) Anesthesia complication Bleeding disorder Cancer Stroke Social History Smoking and tobacco status: never smoked Alcohol intake: current Alcohol intake frequency: 0-2 Drinks per Day Alcohol type: beer Caregiver/support person: No Lives independently: Yes Household members: spouse Marital status: Number of children: 3 Number of grandchildren: 3 Highest education level completed: Some College, No Degree service: No Current occupational status: retired Pets and animals: Yes Pets & animals: dog(s) History of recent travel: No Current gender identity: Male Nadine/Anglican: [employer] Special nadine needs: No Vitals/I&O/Wt Last Vital Signs Temp 97.5 F L 03/04/22 01:46 Pulse 127 H 03/04/22 04:30 Resp 17 03/04/22 04:30 BP 141/86 03/04/22 04:30 Pulse Ox 94 03/04/22 04:30 O2 Del Method 03/04/22 04:30 03/03/22 03/03/22 03/04/22 14:59 22:59 06:59 Intake Total 1008.333 / 1008.333 Balance 1008.333 / 1008.333 Weight last 48 hrs Weight 83.461 kg Physical Exam Narrative: Pleasant cooperative male Appears stated age S1, S2 A. fib RVR Variable heart rate Abdomen soft No signs of edema Pleasant and cooperative Doing well on room air Nonfocal neuro exam No sign of cellulitis Data 03/04/22 02:07 03/04/22 02:07 A&P Assessment and plan (1) Atrial fibrillation with rapid ventricular response: (2) BPH loc w urin obs/LUTS: (3) CKD (chronic kidney disease) stage 3, GFR 30-59 ml/min: (4) Atrial fibrillation: Qualifiers: Atrial fibrillation type: paroxysmal Qualified Code(s): I48.0 - Paroxysmal atrial fibrillation Plan A. fib RVR Currently on Cardizem Patient takes flecainide and Eliquis, he has been compliant with his medication Non-smoker Occasional use of alcohol Check mag level and TSH Check echo Follows up with Dr. Palmer Cardiac diet DVT prophylaxis Eliquis with Eliquis Full code Chronic kidney disease without acute exacerbation Attestations Medical Necessity Statement*: Anticipating more than 2 midnights for management of A. fib RVR Time Spent in Patient Care: 40 Coding Level of Care Code Acute Manager [employer] for Chg Fwd Diagnoses Atrial fibrillation with rapid ventricular response I48.91 BPH loc w urin obs/LUTS N40.1 CKD (chronic kidney disease) stage 3, GFR 30-59 ml/min N18.30 Atrial fibrillation I48.0 Atrial fibrillation type: paroxysmal
--- NOTE | 2022-03-04 04:50 | USCV_ITS ---
Yusuf Gonzales Age: 67 Gender: M : 1955 Exam Date: 03/04/2022 10:00 Ordering Phys: Alfredo An MD Technologist: YASMANI Exam Location: [facility] [place] Indication: A FIB BP: 123 / 84 HR: 69 Rhythm: Sinus Technical Quality: Adequate MEASUREMENTS (Male / Female) Normal Values 2D ECHO LVOT Diameter 2.0 cm LV Ejection Fraction MOD 2C 66.1 % LV Ejection Fraction 2C AL 67.8 % LA Diameter 3.0 cm LA Width 3.9 cm LA Height 5.2 cm RA Width 2.6 cm RA Height 5.0 cm Aorta at Sinotubular Diameter 2.9 cm IVC Diameter 1.5 cm M-MODE Aortic Annulus Diameter 3.9 cm LA Ao Ratio MM 0.8 MV E Point Septal Separation 0.2 cm DOPPLER AV Peak Velocity 120.7 cm/s LVOT Peak Velocity 93.0 cm/s AV Area Cont Eq vti 2.6 cm squared AV Area Cont Eq pk 2.4 cm squared MV Peak Velocity 123.0 cm/s MV Area PHT 2.3 cm squared Mitral E to A Ratio 0.7 MV E' Velocity 41.5 cm/s Mitral E to MV E' Ratio 10.3 Mitral E to LV E' Lateral Ratio 8.3 Mitral E to LV E' Septal Ratio 13.8 TR Peak Velocity 217.3 cm/s TR Peak Gradient 18.9 mmHg TR Mean Velocity 174.7 cm/s TR Mean Gradient 12.8 mmHg TR Velocity Time Integral 71.3 cm TV Peak E Velocity 47.0 cm/s Right Atrial Pressure 3.0 mmHg Pulmonary Artery Systolic Pressu 21.9 mmHg PV Peak Velocity 92.0 cm/s RV Acceleration Time 0.1 s RV Ejection Time 0.3 s RV AcT/ET 0.4 FINDINGS Left Ventricle Normal left ventricular size, systolic function and wall thickness, with no regional wall motion abnormalities. Grade I/IV diastolic dysfunction (abnormal relaxation filling pattern), normal to mildly elevated filling pressures. Left ventricular ejection fraction is estimated at 60 %. Right Ventricle Normal right ventricular size and systolic function. Normal right ventricular systolic pressure. Right Atrium The right atrium is normal in size. Left Atrium Mildly increased left atrial size. Mitral Valve Structurally normal mitral valve. Trace mitral valve regurgitation. Aortic Valve Structurally normal aortic valve without significant sclerosis or stenosis. There is no aortic regurgitation. Tricuspid Valve Structurally normal tricuspid valve. Trace tricuspid valve regurgitation. Pulmonic Valve Pulmonic valve not well visualized. Pericardium Normal pericardium without effusion. Aorta Normal ascending aorta dimension. IVC The inferior vena cava appears normal. CONCLUSIONS Normal left ventricular size, systolic function and wall thickness, with no regional wall motion abnormalities. Grade I/IV diastolic dysfunction (abnormal relaxation filling pattern), normal to mildly elevated filling pressures. Left ventricular ejection fraction is estimated at 60 %. Mildly increased left atrial size. Structurally normal mitral valve. Trace mitral valve regurgitation. No change from the previous echo done 09/27/2020. Dr. Mike Maldonado MD (Electronically Signed) Final Date: 04 March 2022 15:23 S
[2022-03-04] MEDS: flecainide 100 mg Tablet 50 MG PO (06:02)
[2022-03-04 06:29] LABS: Thyroid Stimulating Hormone 2.66 uIU/mL (0.27-4.20); Vitamin B12 459 pg/mL (232-1245)
[2022-03-04 07:25] LABS: Magnesium 2.3 mg/dL (1.7-2.3)
[2022-03-04] MEDS: dilTIAZem 30 mg Tablet PO ×2 (09:17→15:25)
[2022-03-04] MEDS: apixaban 5 mg Tablet PO (09:18)
[2022-03-04] MEDS: tamsulosin 0.4 mg Capsule PO (09:18)
[2022-03-04 10:04] LABS: Troponin 5 6HR 16.39 ng/L (0-15)
[2022-03-04 10:07] LABS: Troponin 5 6HR Delta 8.39 ng/L (0-12)
--- NOTE | 2022-03-04 11:58 | P.DS_ITS ---
Discharge Providers Date of Admission: 03/04/22 05:13 Date of Discharge: March 04, 2022 Attending Provider at Admission: Alfredo An MD Attending Provider at Discharge: José Antonio Montenegro MD Primary Care Provider: Kristian Bertrand MD Diagnoses at Discharge Discharge Diagnosis (1) Atrial fibrillation with rapid ventricular response: Status: Acute (2) BPH loc w urin obs/LUTS: Status: Acute (3) CKD (chronic kidney disease) stage 3, GFR 30-59 ml/min: Status: Acute (4) Atrial fibrillation: Status: Acute Qualifiers: Atrial fibrillation type: paroxysmal Qualified Code(s): I48.0 - Paroxysmal atrial fibrillation Reason for Visit Reason for Visit: irregular hr Hospital Course Hospital Course This is a 67-year-old male with a past medical history of atrial fibrillation on Eliquis and flecainide, hypertension, CVA who presents to [facility] for chest palpitations. He was diagnosed with A. fib with RVR, managed with Cardizem drip, monitored in the [facility], he converted to normal sinus rhythm. Will be discharged home on his home flecainide, Cardizem 120 every 24 hours, with falls follow-up with cardiology as outpatient Physical Exam Const: COMMON NORMALS: no acute distress and patient oriented x3 Resp: COMMON NORMALS: normal respiratory effort, No retractions, No use of accessory muscles and clear to auscultation bilaterally AUSCULTATION: clear to auscultation bilaterally Cardio: COMMON NORMALS: regular rate, regular rhythm, S1 normal heart sound present and S2 normal heart sound present RATE: regular rate RHYTHM: regular rhythm HEART SOUNDS: S1 normal heart sound present and S2 normal heart sound present GI: COMMON NORMALS: Normal to inspection, nondistended, normoactive bowel sounds present and non-tender Extremity: COMMON NORMALS: no pedal edema Neuro: COMMON NORMALS: patient oriented x3 Psych: COMMON NORMALS: mental status grossly normal Discharge Data Studies Completed and Pending Completed Studies During Hospitalization Category Date Time Status XR chest 1V portable [id number] Stat Exams 03/04/22 02:01 Completed Pending at discharge Category Date Time Status Basic Metabolic Panel AM LABS Lab 03/05/22 04:00 Ordered Magnesium AM LABS Lab 03/05/22 04:00 Ordered PHOS [Phosphorus] AM LABS Lab 03/05/22 04:00 Ordered CV. echo complete* [id number] Stat Ultrasound 03/04/22 04:50 Taken Radiology Impressions Chest X-Ray 03/04/22 02:01 IMPRESSION: Mildly decreased lung volumes with mild accentuation of the pulmonary vascularity. Mild left basilar atelectasis/interstitial opacities. Laboratory Results WBC 9.4 10^3/uL (4.0-10.0) 03/04/22 02:07 RBC 4.50 10^6/uL (4.1-5.3) 03/04/22 02:07 Hgb 14.1 g/dL (11.7-16.6) 03/04/22 02:07 Hct 41.4 % (42.0-52.0) L 03/04/22 02:07 MCV 92.0 fl (80-94) 03/04/22 02:07 MCH 31.3 pg (28.0-34.0) 03/04/22 02:07 MCHC 34.1 g/dL (30.0-36.0) 03/04/22 02:07 RDW 12.1 % (12.1-15.1) 03/04/22 02:07 Plt Count 277 10^3/cmm (130-400) 03/04/22 02:07 MPV 9.3 fL (7.4-10.4) 03/04/22 02:07 Neut % (Auto) 52.5 % 03/04/22 02:07 Lymph % (Auto) 34.3 % 03/04/22 02:07 [place] % (Auto) 12.0 % 03/04/22 02:07 Eos % (Auto) 0.0 % 03/04/22 02:07 Baso % (Auto) 1.0 % 03/04/22 02:07 Neut # (Auto) 4.96 10^3/uL (1.8-7.7) 03/04/22 02:07 Lymph # (Auto) 3.2 10^3/uL (0.8-4.8) 03/04/22 02:07 [place]he # (Auto) 1.1 10^3/uL (0.2-0.9) H 03/04/22 02:07 Eos # (Auto) 0.0 10^3/uL (0.0-0.8) 03/04/22 02:07 Baso # (Auto) 0.1 10^3/uL (0.0-0.1) 03/04/22 02:07 Nucleated RBC % (auto) 0 % 03/04/22 02:07 Nucleated RBCs # 0.0 /100WBC 03/04/22 02:07 PT 15.30 SECONDS (12.1-14.9) H 03/04/22 02:07 INR 1.17 (0.8-1.2) 03/04/22 02:07 Sodium 139 mmol/L (136-145) 03/04/22 02:07 Potassium 3.9 mmol/L (3.5-5.1) 03/04/22 02:07 Chloride 103 mmol/L (98-107) 03/04/22 02:07 Carbon Dioxide 24 mmol/L (22-29) 03/04/22 02:07 Anion Gap 15.9 (5-19) 03/04/22 02:07 BUN 20 mg/dL (8-23) 03/04/22 02:07 Creatinine 1.5 mg/dL (0.7-1.2) H 03/04/22 02:07 GFR Calculation 46.8 mL/min (90-130) L 03/04/22 02:07 Glucose 120 mg/dL (65-115) H 03/04/22 02:07 Calculated Osmolality 292 mOsm/kg (285-295) 03/04/22 02:07 Calcium 9.4 mg/dL (8.5-10.5) 03/04/22 02:07 Magnesium 2.3 mg/dL (1.7-2.3) 03/04/22 02:07 Total Bilirubin 0.5 mg/dL (0.15-1.2) 03/04/22 02:07 AST 17 U/L (0-40) 03/04/22 02:07 ALT 17 U/L (0-41) 03/04/22 02:07 Alkaline Phosphatase 58 U/L (40-130) 03/04/22 02:07 Troponin T Baseline 8 ng/L (0-15) 03/04/22 02:07 Troponin T 120 Minute 14.30 ng/L (0-15) 03/04/22 05:40 Delta Troponin T 6.30 ABS# (0-10) 03/04/22 05:40 Troponin T Hi Sens 6Hr 16.39 ng/L (0-15) H 03/04/22 09:28 Troponin T Hi Sens 6Hr Delta 8.39 ng/L (0-12) 03/04/22 09:28 Total Protein 7.1 g/dL (6.6-8.7) 03/04/22 02:07 Albumin 4.1 g/dL (3.5-5.2) 03/04/22 02:07 Globulin 3.0 g/dL (1.3-4.6) 03/04/22 02:07 Vitamin B12 459 pg/mL (232-1245) 03/04/22 05:40 TSH 2.66 uIU/mL (0.27-4.20) 03/04/22 05:40 Vitals Last Vital Signs Temp 98.3 F 03/04/22 07:14 Pulse 58 L 03/04/22 10:43 Resp 13 03/04/22 10:43 BP 122/72 03/04/22 10:43 Pulse Ox 98 03/04/22 07:20 O2 Del Method 03/04/22 07:20 Discharge Plan Discharge Patient Disposition: Home Condition: Stable Prescriptions: New diltiazem HCl [Cardizem CD] 120 mg capsule,extended release 24hr 120 mg PO DAILY 30 Days Qty: 30 0RF Continued cetirizine [24Hour Allergy] 10 mg tablet 10 mg PO DAILY tamsulosin 0.4 mg capsule 0.4 mg PO DAILY Qty: 90 0RF Eliquis 5 mg tablet 5 mg PO BID Qty: 180 3RF flecainide 50 mg tablet 50 mg PO Q12H Qty: 60 6RF hydrocodone-acetaminophen 10-325 mg tablet 1 tab PO DAILY PRN (Reason: chronic back pain) 30 Days Qty: 30 0RF trazodone 100 mg tablet 100 mg PO BEDTIME PRN (Reason: Insomnia) docusate sodium 100 mg capsule 100 mg PO BEDTIME PRN (Reason: Constipation) cyclobenzaprine 5 mg tablet 2.5 mg PO DAILY PRN (Reason: Muscle Spasm) atorvastatin 40 mg tablet 40 mg PO DAILY amlodipine 5 mg tablet 5 mg PO BEDTIME [place] 3 Fish Oil 684-1,200 mg Capsule,Delayed Release(Dr/Ec) 1 cap PO DAILY Discharge Orders: Discharge Order (Routine); Ordered 12/14/22 Ordered By: José Antonio Montenegro Referrals: Kristian Bertrand MD [Primary Care Provider] - Yajaira Palmer MD [Physician] - 7-10 days Discharge Diet: Cardiac Discharge Activity: Resume usual activity Patient Instructions: Opioid Safety Activity Restrictions/Additional Instructions: - If you have recurrent chest palpitations please go to the emergency room, take Cardizem as prescribed, follow-up cardiology in 1 week Discharge Attestations Time Spent in Discharge Care*: less than 30 min Status at Discharge: Cognitive status at discharge: cognitively intact , Behavioral status at discharge: cooperative , Quality Metrics Clinical Quality Measures [ No reported AMI, CVA or VTE this stay] Coding Level of Care Code Acute Chg FW DC note Diagnoses Atrial fibrillation with rapid ventricular response I48.91 BPH loc w urin obs/LUTS N40.1 CKD (chronic kidney disease) stage 3, GFR 30-59 ml/min N18.30 Atrial fibrillation I48.0 Atrial fibrillation type: paroxysmal
--- NOTE | 2022-03-04 16:19 | PC.NURSE ---
discharge instructions given and explained.pt verb understanding of instructions.discharged ambulatory to exit.spouse to drive pt home.
== END 2022-03-04 16:20 | disposition home or self-care (01) ==
LOC: ER 03:36 → CSU 04:58
PROVIDERS: Admitting Provider Internal Medicine; Emergency Provider Emergency Medicine; PCP Family Medicine Adult Medicine; Visit Provider Family Medicine
DX: I48.91 Unspecified atrial fibrillation (principal); N40.1 Benign prostatic hyperplasia with lower urinary tract symptoms; N13.8 Other obstructive and reflux uropathy; I12.9 Hypertensive chronic kidney disease with stage 1 through stage 4 chronic kidney disease, or unspecified chronic kidney disease; N18.30 Chronic kidney disease, stage 3 unspecified; I48.0 Paroxysmal atrial fibrillation; Z79.01 Long term (current) use of anticoagulants; Z86.73 Personal history of transient ischemic attack (TIA), and cerebral infarction without residual deficits
CPT/HCPCS: 36415; 71045; 80053; 82607; 83735; 84443; 84484; 85025; 85610; 93005; 93306; 96374; 99285; G0378; J3490; J7030

== ENCOUNTER → 2022-03-26 09:47 | Outpatient (BNVA) | payer MEDICARE, SELFPAY | PROVIDERS: PCP Family Medicine Adult Medicine; Visit Provider Nurse Practitioner Family | DX: I48.0 Paroxysmal atrial fibrillation (principal); I10 Essential (primary) hypertension | CPT/HCPCS: 93005; 99214 ==

== ENCOUNTER → 2022-03-31 14:12 | Outpatient (BNVA) | payer MEDICARE, SELFPAY | PROVIDERS: PCP Family Medicine Adult Medicine; Visit Provider Surgery | DX: Z12.11 Encounter for screening for malignant neoplasm of colon (principal) | CPT/HCPCS: 99024; 99203 ==

== ENCOUNTER 2022-04-30 06:19 | Day surgery (SDC) | payer MEDICARE, SELFPAY ==
[2022-04-28 08:48] VITALS: BMI 26.5
[2022-04-30 06:38] VITALS: BP 100/71; PULSE 82; RESP 18; TEMP 36.8; O2SAT 98
[2022-04-30] MEDS: sodium chloride 0.9% 1,000 ML 30 ML IV (06:49)
--- NOTE | 2022-04-30 07:12 | ANES.PREANE2 ---
Pre-Anesthetic Assessment Height/Weight: Height 1.78 m Weight 83.915 kg Temp Pulse Resp BP Pulse Ox O2 Del Method 98.2 F 82 18 100/71 98 04/30/22 06:38 04/30/22 06:38 04/30/22 06:38 04/30/22 06:38 04/30/22 06:38 04/30/22 06:38 Operation Date: 04/30/22 08:00 Proposed Procedures p Colonoscopy 94544,Z12.11(Not Applicable) - Flash Dalton DO Familial anesthetic complications: None Was Beta Christine taken within 24 hours: N/A Was Clonidine taken within 24 hours: N/A Last intake: Intake Last Liquid Date 04/29/22 Last Liquid Time 00:00 Last Solid Date 04/28/22 Last Solid Time 00:00 Social No alcohol and No tobacco Exam alert, oriented x 3, clear to auscultation bilaterally and regular rate & rhythm Airway Mallampati: Class II Dentition: full CV/HEM Atrial Fibrillation and Hypertension Date of Service: 03/04/22 Procedure(s): CV. echo complete* [id number] CONCLUSIONS ?Normal left ventricular size, systolic function and wall ?thickness, with no regional wall motion abnormalities. Grade ?I/IV diastolic dysfunction (abnormal relaxation filling ?pattern), normal to mildly elevated filling pressures. Left ?ventricular ejection fraction is estimated at 60 %. ?Mildly increased left atrial size. ?Structurally normal mitral valve. Trace mitral valve ?regurgitation. ?No change from the previous echo done 09/27/2020. 09/27/20 LEXISCAN IMPRESSIONS ?1. Myocardial perfusion imaging is normal.? Attenuation artifact noted in mid to apical inferior and inferolateral ring. ?2. Overall left ventricular systolic function is normal without regional wall? motion abnormalities. ?3. The left ventricular ejection fraction is normal with a value of 58%. ?4. Scan indicates low risk for cardiac events. CONCLUSION: 1. No significant EKG changes with the LexiScan infusion 2. No LexiScan induced chest pain or cardiac arrhythmia. 3. Normal blood pressure and heart rate response. 4. Sestamibi/sestamibi perfusion scan pending; see separate report. 09/27/20 ECHO CONCLUSIONS ?1. Normal left ventricular size, systolic function and wall ?thickness, with no regional wall motion abnormalities. Left ventricular ejection fraction is estimated at 55 %. ?2. Normal right ventricular size and systolic function. ?3. No significant valvular abnormality. ?4. No pericardial effusion. ?5. No prior similar studies to compare. Chronic Renal Insufficiency Metabolic Hyperlipidemia Neuropsych Transient Ischemic Attack Anesthetic Plan ASA status: 3 Anesthesia: MAC Risk of > 500 ml blood loss (7ml/kg in children): No Medications/Allergies Home Medications Medication Instructions Recorded Confirmed Last Taken Type apixaban 5 mg tablet (Eliquis) 5 mg PO BID #180 tabs 10/27/21 04/28/22 04/27/22 Rx flecainide 50 mg tablet 50 mg PO Q12H #60 tabs 12/31/21 04/30/22 04/30/22 Rx tamsulosin 0.4 mg capsule 0.4 mg PO DAILY #90 caps 02/13/22 04/30/22 04/29/22 Rx atorvastatin 40 mg tablet 40 mg PO DAILY 03/04/22 04/30/22 04/29/22 History cyclobenzaprine 5 mg tablet 2.5 mg PO DAILY PRN Muscle Spasm 03/04/22 04/30/22 04/29/22 History docusate sodium 100 mg capsule 100 mg PO BEDTIME PRN Constipation 03/04/22 04/30/22 04/27/22 History omega-3 fatty acids-fish oil 684 1 cap PO DAILY 03/04/22 04/28/22 04/27/22 History mg-1,200 mg capsule,delayed release trazodone 100 mg tablet 100 mg PO BEDTIME PRN Insomnia 03/04/22 04/30/22 04/29/22 History cetirizine 10 mg tablet (24Hour 10 mg PO DAILY PRN allergy 03/19/22 04/30/22 04/29/22 Rx Allergy) symptoms #90 tabs diltiazem HCl 120 mg 120 mg PO DAILY 30 days #30 caps 03/19/22 04/30/22 04/29/22 Rx capsule,extended release 24 hr (Cardizem CD) hydrocodone 10 mg-acetaminophen 1 tab PO DAILY PRN chronic back 04/28/22 04/30/22 04/29/22 Rx 325 mg tablet pain 30 days #30 tabs Allergies Allergy/AdvReac Type Severity Reaction Status Date / Time morphine AdvReac Intermediate ADR-Itching Verified 03/31/22 14:41 Current Medications Generic Name Dose Route Start Last Admin Trade Name Jarrett PRN Reason Stop Dose Admin Sodium Chloride 1,000 mls @ 30 mls/hr 04/30/22 06:30 04/30/22 06:49 Sodium Chloride 0.9% IV 05/01/22 06:29 30 mls/hr .Q24H RAJNI Administration PFSH Anesthesia Medical History Atrial fibrillation BPH loc w urin obs/LUTS Chronic low back pain CKD (chronic kidney disease) stage 3, GFR 30-59 ml/min CVD (cardiovascular disease) Decreased calculated GFR Gout Hx TIA/stroke w/o resid (~2019) Hyperlipidemia Hypertension Insomnia disorder Seasonal allergies Well adult health check Surgical History History of surgery on wrist Family History Mother COPD (chronic obstructive pulmonary disease) Hypertension Lung disease Other CAD (coronary artery disease) Denies family history of Diabetes Clotting disorder Dementia Hyperlipidemia Chronic kidney disease (CKD) Anesthesia complication Bleeding disorder Cancer Stroke Social History Smoking and tobacco status: never smoked Alcohol intake: current Alcohol intake frequency: 0-2 Drinks per Day Alcohol type: beer Caregiver/support person: No Lives independently: Yes Household members: spouse Marital status: Number of children: 3 Number of grandchildren: 3 Highest education level completed: Some College, No Degree service: No Current occupational status: retired Pets and animals: Yes Pets & animals: dog(s) History of recent travel: No Current gender identity: Male Nadine/Temple: Religious Special nadine needs: No Data Anesthesia Cardiac Studies: Echocardiogram 03/04/22 Sestamibi Stress Test (Cardiology) 09/27/20
--- NOTE | 2022-04-30 08:04 | W.PM.OPSUD ---
Surgery/Procedure H&P Update DATE OF PROCEDURE: April 30, 2022 DATE H&P PERFORMED: 03/31/22 PLANNED PROCEDURE: Operation Date: 04/30/22 08:00 Proposed Procedures p Colonoscopy 73535,Z12.11(Not Applicable) - Flash Dalton DO
[2022-04-30 08:30] VITALS: BP 124/90; PULSE 58; RESP 16; TEMP 36.1; O2SAT 94
[2022-04-30 08:47] VITALS: BP 121/82; PULSE 61; RESP 18; O2SAT 98
--- NOTE | 2022-04-30 17:07 | ANE.PACU2 ---
Inpatient post-anesthesia follow up: Airway intact: Yes Vital signs: Temperature 97 F Pulse Rate 61 Respiratory Rate 18 Blood Pressure 121/82 Pulse Oximetry 98 Oxygen Delivery Me thod Room Air Oxygen Flow Rate Fraction of Inspir ed Oxygen Hydration adequate: Yes Nausea and vomiting: No Pain level: 1 Mental status: Baseline
== END 2022-04-30 09:16 | disposition home or self-care (01) ==
PROVIDERS: PCP Family Medicine Adult Medicine; Visit Provider Surgery
PROC: 0DJD8ZZ Inspection of Lower Intestinal Tract, Via Natural or Artificial Opening Endoscopic (ICD-10-PCS; CPT 45378; principal; 2022-04-30 08:00)
DX: Z12.11 Encounter for screening for malignant neoplasm of colon (principal); K64.8 Other hemorrhoids; D12.4 Benign neoplasm of descending colon; I10 Essential (primary) hypertension; I48.91 Unspecified atrial fibrillation; E78.5 Hyperlipidemia, unspecified; Z79.01 Long term (current) use of anticoagulants; N40.1 Benign prostatic hyperplasia with lower urinary tract symptoms; N13.8 Other obstructive and reflux uropathy; I12.9 Hypertensive chronic kidney disease with stage 1 through stage 4 chronic kidney disease, or unspecified chronic kidney disease; N18.30 Chronic kidney disease, stage 3 unspecified
CPT/HCPCS: 45385; 88305; J2704; J7030

== ENCOUNTER → 2022-05-13 16:55 | Outpatient (BNVA) | payer MEDICARE, SELFPAY | PROVIDERS: PCP Family Medicine Adult Medicine; Visit Provider Surgery | DX: Z09 Encounter for follow-up examination after completed treatment for conditions other than malignant neoplasm (principal); N40.2 Nodular prostate without lower urinary tract symptoms; D12.6 Benign neoplasm of colon, unspecified | CPT/HCPCS: 99212 ==

== ENCOUNTER → 2022-06-04 13:36 | Outpatient (BNVA) | payer MEDICARE, SELFPAY | PROVIDERS: PCP Family Medicine Adult Medicine; Visit Provider Nurse Practitioner Family | DX: I48.0 Paroxysmal atrial fibrillation (principal); I12.9 Hypertensive chronic kidney disease with stage 1 through stage 4 chronic kidney disease, or unspecified chronic kidney disease; N18.30 Chronic kidney disease, stage 3 unspecified; Z79.01 Long term (current) use of anticoagulants | CPT/HCPCS: 99214 ==

== ENCOUNTER → 2022-09-04 10:30 | Outpatient (BNVA) | payer MEDICARE, SELFPAY | PROVIDERS: PCP Family Medicine Adult Medicine; Visit Provider Internal Medicine Cardiovascular Disease | DX: I48.0 Paroxysmal atrial fibrillation (principal); E78.2 Mixed hyperlipidemia; Z86.73 Personal history of transient ischemic attack (TIA), and cerebral infarction without residual deficits; I12.9 Hypertensive chronic kidney disease with stage 1 through stage 4 chronic kidney disease, or unspecified chronic kidney disease; N18.30 Chronic kidney disease, stage 3 unspecified | CPT/HCPCS: 99214 ==

== ENCOUNTER → 2022-09-14 10:03 | Outpatient (BNVA) | payer MEDICARE, SELFPAY | PROVIDERS: PCP Family Medicine Adult Medicine | DX: I48.91 Unspecified atrial fibrillation (principal) | CPT/HCPCS: 93005 ==

== ENCOUNTER → 2022-09-30 14:36 | Outpatient (BNVA) | payer MEDICARE, SELFPAY | PROVIDERS: PCP Family Medicine Adult Medicine; Visit Provider Family Medicine Adult Medicine | DX: N18.30 Chronic kidney disease, stage 3 unspecified (principal); I10 Essential (primary) hypertension; N40.1 Benign prostatic hyperplasia with lower urinary tract symptoms; I48.91 Unspecified atrial fibrillation; G89.29 Other chronic pain; I48.0 Paroxysmal atrial fibrillation; N40.2 Nodular prostate without lower urinary tract symptoms; Z86.73 Personal history of transient ischemic attack (TIA), and cerebral infarction without residual deficits; E78.2 Mixed hyperlipidemia; I25.10 Atherosclerotic heart disease of native coronary artery without angina pectoris; M10.9 Gout, unspecified | CPT/HCPCS: 80053; 81000; 85025 ==

== ENCOUNTER 2022-10-01 09:29 | Outpatient (CLI) | payer MEDICARE, SELFPAY ==
--- NOTE | 2022-10-01 09:45 | USCV_ITS ---
Yusuf Gonzales Age: 67 Gender: M : 1955 Exam Date: 10/01/2022 09:45 Ordering Phys: Yajaira Palmer MD ([email or web address]) Technologist: Claudio Whitman Exam Location: [facility] [place] Indication: Carotid stenosis Risk Factors: Previous Vascular Surgery: Right Brachial BP: / Left Brachial BP: / Right Left Velocity (cm/s) Spectral Plaque Velocity (cm/s) Spectral Plaque Syst/Diast Broadening Syst/Diast Broadening 100.30/22.10 Prox CCA 55.10 / 9.40 100.30/26.50 Mid CCA 53.80 / 7.30 83.10/ 24.90 Distal CCA 59.20 / 11.80 152.50/44.70 Prox ICA / 71.00/ 23.70 Mid ICA / 70.00/ 24.10 Distal ICA / 113.60 ECA 101.80 0.71 ICA/CCA Antegrade Vertebral 103.6/ 33.10 cm/s / cm/s 0 Tri Subclavian Tri 93.10 82.10 CONCLUSIONS Right ICA stenosis 50-69%. Moderate atheromatous plaque right carotid bulb/ICA. 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 Left common carotid is patent. LEFT ECA is patent. Intimal thickening and atheromatous plaque both CCA's Normal antegrade Doppler flow noted in the right vertebral artery. LEFT vertebral artery is occluded. Left Subclavian is patent Notified Dr. Palmer at 1350pm 10/01/22 Chava Izquierdo MD (Electronically Signed) Final Date: 01 October 2022 13:52 S
== END 2022-10-01 09:30 | disposition home or self-care (01) ==
PROVIDERS: PCP Family Medicine Adult Medicine; Visit Provider Internal Medicine Cardiovascular Disease
DX: Z01.818 Encounter for other preprocedural examination (principal); I65.23 Occlusion and stenosis of bilateral carotid arteries; R42 Dizziness and giddiness
CPT/HCPCS: 93880

== ENCOUNTER 2022-10-15 07:49 | Emergency (ER) | payer MEDICARE, SELFPAY ==
[2022-10-15 08:03] VITALS: BP 110/61; PULSE 64; TEMP 36.7; O2SAT 98; BMI 25.8
--- NOTE | 2022-10-15 08:09 | XR_ITS ---
WS: [id number] EXAMINATION: XR chest 1V portable [id number] REASON FOR EXAM: dyspnea/cough COMPARISON: L 1422 ORDER DATE: 10/15/2022 8:25 AM TECHNIQUE: A single, portable frontal chest x-ray was obtained. X-RAY FINDINGS: The lungs are clear. Pleural spaces are clear. No pleural effusions or pneumothorax. Cardiomediastinal silhouette is unremarkable with minor atherosclerotic calcified plaque. No evidence for pulmonary edema. Soft tissue and osseous structures are unremarkable. No tubes or lines are present. XR/XR chest 1V portable [id number] IMPRESSION: Unremarkable frontal portable chest x-ray.
--- NOTE | 2022-10-15 08:10 | ECG_ITS ---
[facility] Test Date: 2022-10-15 Pat Name: Yusuf Gonzales Department: Room: Gender: Male Rail Director: : 1955 Requested By: Jeffrey Sandoval Order Number: [id number] Tavo MD: Yajaira Palmer M.D. Measurements Intervals [place] Rate: 59 P: 35 [place]: 176 QRS: 24 QRSD: 93 T: 61 QT: 454 QTc: 453 Interpretive Statements SINUS BRADYCARDIA Compared to ECG 09/14/2022 10:16:56 Sinus rhythm no longer present Electronically Signed On 10-15-2022 12:26:25 CDT by Yajaira Palmer M.D. [id number]
--- NOTE | 2022-10-15 08:10 | ED_ITS ---
HPI - Syncope General: Chief Complaint: Weakness Stated Complaint: syncope Time Seen by Provider: 10/15/22 07:56 Source: patient Mode of arrival: EMS History of Present Illness: 67-year-old male presents emergency room after near syncopal episode at home. He gotten up walk to the bathroom and nearly passed out. Patient recently been diagnosed with prostate cancer had a robotic prostatectomy at [facility] and was discharged yesterday. He has had incontinence of urine and hematuria since then. Subjectively reporting a fever this morning. He is awake and alert. He has a history of atrial fibrillation has not had any rapid heart rates or palpitations this morning he restarted his apixaban after surgery. Denies any nausea vomiting or diarrhea no chest pain at this time. MD complaint: almost passed out and collapsed Onset (ago): minute(s) Prodromal symptoms: lightheaded Witnessed: Yes - by Bystander Context: getting out of bed and standing up Injuries sustained associated with event: none Associated symptoms: Reports nausea; Deny abdominal pain, chest pain, fever(s), headache(s), lightheadedness, short of breath, vertigo or weakness Treatments prior to arrival: none Review of Systems Const: Denies: fever(s), chills, fatigue or malaise ENMT: Denies: throat pain, ear or mastoid pain, nasal discharge or nasal congestion Card: Denies: chest pain, palpitations, irregular heart rhythm, edema or lightheadedness Resp: Denies: dyspnea, productive cough or non-productive cough GI: Reports: nausea; Denies: abdominal pain or vomiting : Denies: flank pain, dysuria, urinary frequency or urinary urgency Musc: Denies: neck pain or back pain Skin/Breast: Denies: rash or pruritus Neuro: Reports: dizziness; Denies: headache(s) or vertigo PFSH ED PFSH: Medical History Atrial fibrillation BPH loc w urin obs/LUTS Chronic low back pain CKD (chronic kidney disease) stage 3, GFR 30-59 ml/min CVD (cardiovascular disease) Decreased calculated GFR Gout Hx TIA/stroke w/o resid (~2019) Hyperlipidemia Hypertension Insomnia disorder Prostate CA Seasonal allergies Well adult health check Surgical History History of surgery on wrist Family History Mother COPD (chronic obstructive pulmonary disease) Hypertension Lung disease Other CAD (coronary artery disease) Social History Smoking and tobacco status: never smoked Alcohol intake: current Alcohol intake frequency: 0-2 Drinks per Day Alcohol type: beer Substance/Drug Use: never Caregiver/support person: No Lives independently: Yes Household members: spouse Marital status: Number of children: 3 Number of grandchildren: 3 Highest education level completed: Some College, No Degree service: No Current occupational status: retired Pets and animals: Yes Pets & animals: dog(s) Do you think of yourself as: Straight/Heterosexual Current gender identity: Male Nadine/Latter-Day: Sabianism Special nadine needs: No Physical Exam Const: COMMON NORMALS: no acute distress GENERAL APPEARANCE: cooperative and comfortable ORIENTATION/CONSCIOUSNESS: Yes awake, Yes oriented to person, Yes oriented to place and Yes oriented to time HENMT: COMMON NORMALS: normocephalic, atraumatic and hearing grossly normal bilaterally HEAD & SCALP: normocephalic and atraumatic Resp: COMMON NORMALS: normal respiratory effort, No retractions, No use of accessory muscles and clear to auscultation bilaterally AUSCULTATION: clear to auscultation bilaterally Cardio: COMMON NORMALS: regular rate, regular rhythm and No murmurs present (Cardio) RATE: regular rate RHYTHM: regular rhythm GI: COMMON NORMALS: Soft to palpation and No hepatosplenomegaly present AUSCULTATION: Yes normoactive bowel sounds PALPATION: Yes Soft to palpation, No Tenderness to palpation present (GI), No Guarding due to palpation present (GI) and Yes No hepatosplenomegaly present OTHER: Ecchymosis of the lower abdominal wall from recent surgery incision sites look good no sign infection erythema or drainage Extremity: COMMON NORMALS: normal to inspection, capillary refill normal, no clubbing, cyanosis or edema, no calf tenderness and no pedal edema Neuro: SENSORIUM/ORIENTATION: Yes oriented to person, Yes oriented to place and Yes oriented to time Skin: COMMON NORMALS: no rashes or lesions noted GENERAL SKIN EXAM: no rashes or lesions noted Course Vital Signs: Vital signs: Vital Signs Temperature 98.0 F 10/15/22 08:03 Pulse Rate 64 10/15/22 08:03 Respiratory Rate 16 10/15/22 11:36 Blood Pressure 110/61 10/15/22 08:03 Pulse Oximetry 98 10/15/22 11:36 Oxygen Delivery Me thod Room Air 10/15/22 08:03 MDM - Syncope Medical Decision Making Patient does have new postop anemia I contacted his physician in [place] who did his prostatectomy. Prostatectomy was done by robotics. Surgeon said he did have a postop hematoma there is no evidence of blood or urinary retention on the CT patient does have a lot of abdominal cramping looks like he may have an ileus on his CT. There is no evidence of nephrolithiasis although he does have a stone in the right kidney has an atrophic left kidney. We will hold his Eliquis transfuse 1 unit packed red blood cells and outpatients. Have him follow-up with his primary care doctor within the next week to reevaluate whether or not to resume his Eliquis. Asked the patient to call Dr. Bardales's office for guidance regarding follow-up from the prostatectomy. If he has any recurrence of problems return to the emergency room incidentally was found to have a cystit is he was given a gram Rocephin here and discharged home on Macrobid. Medical Records I reviewed the patient's medical records. Lab Data I reviewed the patient's lab results. 10/15/22 12:00 10/15/22 08:27 Radiology Impressions Chest X-Ray 10/15/22 08:09 IMPRESSION: Unremarkable frontal portable chest x-ray. Abdomen/Pelvis CT 10/15/22 09:14 IMPRESSION: 1. Recent postoperative changes prostatectomy with expected postoperative hematoma in the prostate bed. Small amount of fluid and hematoma along the pelvic sidewalls postoperative. No drainable abscess or fluid collection. 2. No large pelvic hematoma to account for anemia. 3. A few air-fluid levels in normal caliber small bowel likely due to postoperative ileus. No evidence of large or small bowel obstruction. 4. No hydronephrosis. 5. Atrophic LEFT kidney. 6. No other acute findings. Laboratory Results WBC 16.4 10^3/uL (4.0-10.0) H 10/15/22 12:00 RBC 2.83 10^6/uL (4.1-5.3) L 10/15/22 12:00 Hgb 9.0 g/dL (11.7-16.6) L 10/15/22 12:00 Hct 26.4 % (42.0-52.0) L 10/15/22 12:00 MCV 93.3 fl (80-94) 10/15/22 12:00 MCH 31.8 pg (28.0-34.0) 10/15/22 12:00 MCHC 34.1 g/dL (30.0-36.0) 10/15/22 12:00 RDW 13.4 % (12.1-15.1) 10/15/22 12:00 Plt Count 345 10^3/cmm (130-400) 10/15/22 12:00 MPV 8.7 fL (7.4-10.4) 10/15/22 12:00 Neut % (Auto) 82.2 % 10/15/22 12:00 Lymph % (Auto) 10.7 % 10/15/22 12:00 [place] % (Auto) 6.3 % 10/15/22 12:00 Eos % (Auto) 0.0 % 10/15/22 12:00 Baso % (Auto) 0.3 % 10/15/22 12:00 Reticulocyte % (Auto) 2.9 % (0.5-2.0) H 10/15/22 08:27 Neut # (Auto) 13.49 10^3/uL (1.8-7.7) H 10/15/22 12:00 Lymph # (Auto) 1.8 10^3/uL (0.8-4.8) 10/15/22 12:00 [place]ell # (Auto) 1.0 10^3/uL (0.2-0.9) H 10/15/22 12:00 Eos # (Auto) 0.0 10^3/uL (0.0-0.8) 10/15/22 12:00 Baso # (Auto) 0.1 10^3/uL (0.0-0.1) 10/15/22 12:00 Nucleated RBC % (auto) 0 % 10/15/22 12:00 Nucleated RBCs # 0.0 /100WBC 10/15/22 12:00 Haptoglobin 56.0 mg/L (30-200) 10/15/22 08:27 Sodium 135 mmol/L (136-145) L 10/15/22 08:27 Potassium 4.5 mmol/L (3.5-5.1) 10/15/22 08:27 Chloride 103 mmol/L (98-107) 10/15/22 08:27 Carbon Dioxide 21 mmol/L (22-29) L 10/15/22 08:27 Anion Gap 15.5 (5-19) 10/15/22 08:27 BUN 17 mg/dL (8-23) 10/15/22 08:27 Creatinine 1.4 mg/dL (0.7-1.2) H 10/15/22 08:27 GFR Calculation 50.7 mL/min (90-130) L 10/15/22 08:27 Glucose 106 mg/dL (65-115) 10/15/22 08:27 Calculated Osmolality 282 mOsm/kg (285-295) L 10/15/22 08:27 Calcium 8.6 mg/dL (8.5-10.5) 10/15/22 08:27 TIBC 170 mcg/dl 10/15/22 08:27 Unsat Iron Binding 152 ug/dL (112-347) 10/15/22 08:27 Total Bilirubin 1.8 mg/dL (0.15-1.2) H 10/15/22 08:27 AST 12 U/L (0-40) 10/15/22 08:27 ALT 13 U/L (0-41) 10/15/22 08:27 Alkaline Phosphatase 52 U/L (40-130) 10/15/22 08:27 Troponin T Baseline 12 ng/L (0-15) 10/15/22 08:27 Troponin T 120 Minute 12.28 ng/L (0-15) 10/15/22 11:35 Total Protein 5.4 g/dL (6.6-8.7) L 10/15/22 08:27 Albumin 3.2 g/dL (3.5-5.2) L 10/15/22 08:27 Globulin 2.2 g/dL (1.3-4.6) 10/15/22 08:27 Urine Color Red (Yellow) 10/15/22 08:53 Urine Appearance Bloody (CLEAR) A 10/15/22 08:53 Urine pH 9 (5-7) H 10/15/22 08:53 Ur Specific [place] 1.015 (1.005-1.030) 10/15/22 08:53 Urine Protein 3+ (Negative) H 10/15/22 08:53 Urine Glucose (UA) Norm (Normal) 10/15/22 08:53 Urine Ketones Negative (Negative) 10/15/22 08:53 Urine Blood 3+ (Negative) H 10/15/22 08:53 Urine Nitrate Negative (Negative) 10/15/22 08:53 Urine Bilirubin Neg (Negative) 10/15/22 08:53 Prot Sulfosalicylic Acd TNP 10/15/22 08:53 Urine Urobilinogen Norm mg/dL (Negative) 10/15/22 08:53 Ur Leukocyte Esterase 2+ (Negative) H 10/15/22 08:53 Urine RBC 0-4 /hpf (0-2) H 10/15/22 08:53 Urine WBC >100 /hpf (0-5) H 10/15/22 08:53 Ur Squamous Epith Cells 0-4 /hpf (0-5) H 10/15/22 08:53 Amorphous Sediment Not Reportable 10/15/22 08:53 Urine Bacteria 1+ /hpf (NONE) H 10/15/22 08:53 Blood Type A Positive 10/15/22 09:38 Rho(D) Type Positive 10/15/22 09:38 Antibody Screen Negative 10/15/22 09:38 Discharge Plan Discharge Patient Disposition: Home Clinical Impression: Anemia, Atrial fibrillation, Prostate CA, Cystitis Condition: Stable Prescriptions: New Macrobid 100 mg capsule 100 mg PO BID 7 Days Qty: 14 0RF Rx Instructions: must administer with a meal/food Discontinued Eliquis 5 mg tablet 5 mg PO BID Qty: 180 3RF Hold Instructions: Resume on 05/03/22. No Action cetirizine [24Hour Allergy] 10 mg tablet 10 mg PO DAILY PRN (Reason: allergy symptoms) Qty: 90 0RF cholecalciferol (vitamin D3) 125 mcg (5,000 unit) capsule 125 mcg PO DAILY atorvastatin 40 mg tablet 40 mg PO DAILY Qty: 90 3RF flecainide 100 mg tablet 100 mg PO Q12H Qty: 180 2RF hydrocodone-acetaminophen 10-325 mg tablet 1 tab PO DAILY PRN (Reason: chronic back pain) 30 Days Qty: 30 0RF tamsulosin 0.4 mg capsule 0.4 mg PO DAILY Qty: 90 0RF trazodone 100 mg tablet 100 mg PO BEDTIME PRN (Reason: Insomnia) Qty: 90 1RF enoxaparin [Lovenox] 100 mg/mL syringe 90 mg SUBCUT DIRECTED Qty: 3.6 0RF Rx Instructions: 1 injection twice daily for 2 days prior to surgery on 10/05/22 while holding Eliquis amlodipine 5 mg tablet 5 mg PO BEDTIME Qty: 90 0RF docusate sodium 100 mg capsule 100 mg PO BEDTIME PRN (Reason: Constipation) cyclobenzaprine 5 mg tablet 2.5 mg PO DAILY PRN (Reason: Muscle Spasm) omega-3 fatty acids-fish oil 684-1,200 mg Capsule,Delayed Release(Dr/Ec) 1 cap PO DAILY Discharge Orders: Discharge ED (Routine); Ordered 10/15/22 Ordered By: Jeffrey Maza Referrals: Kristian Bertrand MD [Primary Care Provider] - Discharge Diet: Usual diet Discharge Activity: Increase activity as tolerated Patient Instructions: Opioid Safety, Pain Management Activity Restrictions/Additional Instructions: Your evaluated in the emergency room for the weakness. You are found to be acutely anemic. We did not find a source of blood loss. An anemia panel was done in the emergency room we recommend that you hold your Eliquis and Lovenox until directed to restart by your primary care doctor or surgeon. After discharge you will be brought to outpatients further we will transfuse a unit of blood. You were also noted to have a bladder infection. You are given a single dose of IV antibiotics in the emergency room and start oral antibiotics tomorrow Coding Level of Care Code ED Computer Typesetter Keyliner for Gale Jarrell
[2022-10-15 08:35] LABS: Basophils % 0.2 %; Hematocrit 23.3 % (42.0-52.0); Hemoglobin 7.8 g/dL (11.7-16.6); Lymphocytes # 1.1 10^3/uL (0.8-4.8); Lymphocytes % 7.3 %; Mean Corpuscular HGB Conc 33.5 g/dL (30.0-36.0); Mean Corpuscular Hemoglobin 31.1 pg (28.0-34.0); Mean Corpuscular Volume 92.8 fl (80-94); Monocytes # 1.1 10^3/uL (0.2-0.9); Monocytes % 7.1 %; Neutrophils # 13.36 10^3/uL (1.8-7.7); Nucleated Red Blood Cells % 0 %; Platelet Count 347 10^3/cmm (130-400); Red Blood Count 2.51 10^6/uL (4.1-5.3); Red Cell Distribution Width 13.4 % (12.1-15.1); White Blood Count 15.7 10^3/uL (4.0-10.0)
[2022-10-15 08:52] LABS: Alanine Aminotransferase 13 U/L (0-41); Albumin Level 3.2 g/dL (3.5-5.2); Alkaline Phosphatase 52 U/L (40-130); Anion Gap 15.5 (5-19); Aspartate Amino Transferase 12 U/L (0-40); Blood Urea Nitrogen 17 mg/dL (8-23); Calcium 8.6 mg/dL (8.5-10.5); Carbon Dioxide 21 mmol/L (22-29); Chloride 103 mmol/L (98-107); Globulin 2.2 g/dL (1.3-4.6); Glomerular Filtration Rate 50.7 mL/min (90-130); Glucose 106 mg/dL (65-115); Osmolality Calculated 282 mOsm/kg (285-295); Potassium 4.5 mmol/L (3.5-5.1); Sodium 135 mmol/L (136-145); Total Bilirubin 1.8 mg/dL (0.15-1.2); Total Protein 5.4 g/dL (6.6-8.7)
[2022-10-15 09:00] LABS: Troponin(5th) Baseline 12 ng/L (0-15)
--- NOTE | 2022-10-15 09:14 | CT_ITS ---
WS: [id number] CT ABDOMEN PELVIS TECHNIQUE: Contrast-enhanced CT of the abdomen and pelvis with coronal and sagittal reformatted image s. CLINICAL INFORMATION: abd pain/postop anemia status post pelvic surgery COMPARISON: None. DLP: 646.[address] scans at [facility] use at least one of these dose optimization techniques: automated e xposure control; mA and/or kV adjustment per patient size (includes targeted exams where dose is matc hed to clinical indication); or iterative reconstruction. FINDINGS: Recent postoperative changes prostatectomy. Postoperative edema and hematoma within the prostate bed and extending along the pelvic sidewalls bilaterally. Small amount of fluid and hematoma in the peric olic gutters. No evidence of large retroperitoneal hemorrhage or hematoma. No large pelvic hematoma. Findings are compatible with normal postoperative changes. No evidence of drainable abscess or fluid collection. Mild diffuse fatty infiltration liver. Normal GE junction. Adrenal glands are normal. Atrophic LEFT kidney. Aortic calcification. Normal caliber abdominal aorta. Atrophy pancreas. No evidence of high-g rade small or large bowel obstruction. Small amount of fluid in the small bowel with a few air-fluid levels likely due to postoperative ileus. Slight LEFT basilar atelectasis CT/CT abdomen pelvis w con* [id number] IMPRESSION: 1. Recent postoperative changes prostatectomy with expected postoperative tara guillermo in the prostate bed. Small amount of fluid and hematoma along the pelvic s idewalls postoperative. No drainable abscess or fluid collection. 2. No large pelvic hematoma to account for anemia. 3. A few air-fluid levels in normal caliber small bowel likely due to postoper ative ileus. No evidence of large or small bowel obstruction. 4. No hydronephrosis. 5. Atrophic LEFT kidney. 6. No other acute findings.
[2022-10-15 09:18] LABS: Bilirubin Urine Neg (Negative); Blood Urine 3+ (Negative); Glucose Urine UA Norm (Normal); Ketones Urine Negative (Negative); Nitrate Urine Negative (Negative); Protein Urine 3+ (Negative); Specific Gravity, Urine 1.015 (1.005-1.030); Urine Appearance Bloody (CLEAR); Urine Color Red (Yellow); pH Urine 9 (5-7)
[2022-10-15 09:19] LABS: Add Urine Microscopic? YES; Leukocyte Esterase Urine 2+ (Negative); Urobilinogen Urine Norm (Negative)
[2022-10-15 09:21] LABS: Add Urine Culture? Yes; Bacteria Urine 1+ /hpf; RBC Urine 0-4 /hpf (0-2); Squamous Epithelial Cell Urine 0-4 /hpf (0-5); WBC Urine >100 /hpf (0-5)
[2022-10-15] MEDS: cefTRIAXone 1,000 MG in sodium chloride 0.9% (plus) 50 ML 100 MG IV (09:50)
--- NOTE | 2022-10-15 10:10 | ECG_ITS ---
[facility] Test Date: 2022-10-15 Pat Name: Yusuf Gonzales Department: Room: Gender: Male Sr. Payroll Processor: : 1955 Requested By: Jeffrey Sandoval Order Number: [id number] Tavo MD: Salomón Larsen M.D. Measurements Intervals [place] Rate: 68 P: 46 [place]: 185 QRS: 20 QRSD: 100 T: 60 QT: 434 QTc: 465 Interpretive Statements SINUS RHYTHM Compared to ECG 10/15/2022 08:24:08 Sinus bradycardia no longer present Electronically Signed On 10-15-2022 14:01:03 CDT by Salomón Larsen M.D. [id number]
[2022-10-15] MEDS: iohexol 350 mg/mL 500 mL Btl (per mL) IV (10:15)
[2022-10-15 11:36] VITALS: RESP 16; O2SAT 98
[2022-10-15] MEDS: morphine 4 mg/mL SDV 1 mL 2 MG IVP (11:36)
[2022-10-15] MEDS: diphenhydrAMINE 50 mg/mL SDV 1mL IVP (11:45)
[2022-10-15 12:01] LABS: Troponin 5 2HR 12.28 ng/L (0-15)
[2022-10-15 12:06] LABS: Reticulocyte % 2.9 % (0.5-2.0)
[2022-10-15 12:06] LABS: Basophils # 0.1 10^3/uL (0.0-0.1); Basophils % 0.3 %; Hematocrit 26.4 % (42.0-52.0); Lymphocytes # 1.8 10^3/uL (0.8-4.8); Lymphocytes % 10.7 %; Mean Corpuscular HGB Conc 34.1 g/dL (30.0-36.0); Mean Corpuscular Hemoglobin 31.8 pg (28.0-34.0); Mean Corpuscular Volume 93.3 fl (80-94); Mean Platelet Volume 8.7 fL (7.4-10.4); Monocytes % 6.3 %; Neutrophils # 13.49 10^3/uL (1.8-7.7); Neutrophils % 82.2 %; Nucleated Red Blood Cells % 0 %; Platelet Count 345 10^3/cmm (130-400); Red Blood Count 2.83 10^6/uL (4.1-5.3); Red Cell Distribution Width 13.4 % (12.1-15.1); White Blood Count 16.4 10^3/uL (4.0-10.0)
[2022-10-15 12:15] LABS: Ferritin 620 ng/mL (30-400); Iron 18 ug/dL (59-158); Lactate Dehydrogenase 235 U/L (135-225); Percent Saturation 10.5 % (20-50); Total Iron Binding Capacity 170 mcg/dl; Unsaturated Iron Binding 152 ug/dL (112-347)
[2022-10-15 12:16] LABS: Troponin 5 2HR Delta 0.28 ABS# (0-10)
[2022-10-15 12:31] VITALS: BP 160/97; PULSE 78; RESP 16; O2SAT 99
[2022-10-15 12:31] LABS: Vitamin B12 374 pg/mL (232-1245)
[2022-10-15 12:50] LABS: Folate Level 12.6 ng/mL (4.5-32.2)
[2022-10-20 10:40] LABS: Erythropoietin 23.2 mIU/mL (2.6-18.5)
== END 2022-10-15 12:32 | disposition home or self-care (01) ==
PROVIDERS: Emergency Provider Family Medicine; PCP Family Medicine Adult Medicine
DX: C61 Malignant neoplasm of prostate (principal); N30.90 Cystitis, unspecified without hematuria; D63.0 Anemia in neoplastic disease; I12.9 Hypertensive chronic kidney disease with stage 1 through stage 4 chronic kidney disease, or unspecified chronic kidney disease; N18.30 Chronic kidney disease, stage 3 unspecified; E78.5 Hyperlipidemia, unspecified; I48.91 Unspecified atrial fibrillation; Z79.899 Other long term (current) drug therapy; Z79.01 Long term (current) use of anticoagulants; Z86.73 Personal history of transient ischemic attack (TIA), and cerebral infarction without residual deficits; Z90.79 Acquired absence of other genital organ(s)
CPT/HCPCS: 36415; 71045; 74177; 80053; 81001; 82607; 82668; 82728; 82746; 83010; 83540; 83550; 83615; 84484; 85025; 85045; 86850; 86900; 87077; 87086; 87186; 93005; 96365; 96375; 99285; J0696; J1200; J2270; Q9967

== ENCOUNTER → 2022-10-15 12:47 | Day surgery (SDC) | payer MEDICARE, SELFPAY ==
--- NOTE | 2022-10-15 13:00 | PC.NURSE ---
Pt to GI infusions for 1 unit PRBC's for Hg 7.8 this morning from ER. IV left in place to left AC from ER. Last Hg at [address] Maza notified. Orders received to cancel unit and discharge home. IV removed from left AC. at bedside. Pt off unit via wheelchair to be taken home by private vehicle. Pt to follow up with Dr. Bertrand, PCP, next week.
== END ==
PROVIDERS: PCP Family Medicine Adult Medicine; Visit Provider Family Medicine
DX: D64.9 Anemia, unspecified (principal)
CPT/HCPCS: 86920

== ENCOUNTER → 2022-10-23 09:37 | Outpatient (BNVA) | payer MEDICARE, SELFPAY | PROVIDERS: PCP Family Medicine Adult Medicine; Visit Provider Internal Medicine | DX: R55 Syncope and collapse (principal); I48.91 Unspecified atrial fibrillation; E78.2 Mixed hyperlipidemia; Z86.73 Personal history of transient ischemic attack (TIA), and cerebral infarction without residual deficits; G89.29 Other chronic pain; I12.9 Hypertensive chronic kidney disease with stage 1 through stage 4 chronic kidney disease, or unspecified chronic kidney disease; N18.2 Chronic kidney disease, stage 2 (mild) | CPT/HCPCS: 93225; 99214 ==

== ENCOUNTER → 2022-12-02 14:24 | Outpatient (BNVA) | payer MEDICARE, SELFPAY | PROVIDERS: PCP Family Medicine Adult Medicine; Visit Provider Internal Medicine | DX: I48.91 Unspecified atrial fibrillation (principal); E78.2 Mixed hyperlipidemia; I10 Essential (primary) hypertension; Z86.73 Personal history of transient ischemic attack (TIA), and cerebral infarction without residual deficits; G89.29 Other chronic pain; Z79.01 Long term (current) use of anticoagulants; Z79.82 Long term (current) use of aspirin | CPT/HCPCS: 99214 ==

== ENCOUNTER → 2022-12-09 09:24 | Outpatient (BNVA) | payer MEDICARE, SELFPAY | PROVIDERS: PCP Family Medicine Adult Medicine; Referring Provider Internal Medicine; Visit Provider Psychiatry & Neurology Neurology | DX: I99.8 Other disorder of circulatory system (principal) | CPT/HCPCS: 99203 ==

== ENCOUNTER 2022-12-23 09:25 | Outpatient (CLI) | payer MEDICARE, SELFPAY ==
--- NOTE | 2022-12-23 09:30 | MR_ITS ---
WS: [id number] MRI BRAIN WITHOUT CONTRAST HISTORY: I99.8 - Other disorder of circulatory system COMPARISON: None available. TECHNIQUE: Diffusion imaging, multiplanar T1, T2 and FLAIR imaging obtained. No acute diffusion abnormalities are identified. There is a large prior infarct in the inferior LEFT cerebellum with mild volume loss. There is an additional smaller infarct in the medial RIGHT cerebell um. There is an area of increased T2 signal in the subcortical white matter of the anterior LEFT fron lidia lobe. None of these areas show acute restriction on diffusion imaging. These are probably prior i nfarct. No prior studies for comparison. There is moderate atrophy and volume loss. Ventricles are dilated and slightly out of proportion to t he extent of the atrophy. There is mild small vessel ischemic changes in the periventricular and supr aventricular white matter. Mild small vessel ischemic disease in the jeanette. No inferior displacement of cerebellar tonsils. The sella turcica and pituitary gland are unremarkabl e. Dural venous sinuses and kake of Rey demonstrate no abnormality on this unenhanced studies. Stefanie nant RIGHT vertebral artery. No flow void is identified within the LEFT intracranial vertebral artery . Paranasal sinuses: No paranasal sinus disease. Mastoid air cells: Small amount of fluid in the LEFT mastoid air cells. Calvarium and scalp: Intact. IMPRESSION: 1. No restricted diffusion or acute infarct. 2. Moderate ventriculomegaly. Slightly out of proportion to the amount of atrophy. Consider normal p ressure hydrocephalus. 3. Large remote inferior LEFT cerebellar infarct. Smaller infarcts in the medial RIGHT cerebellum. 4. Subcortical white matter increased T2 signal involving the LEFT frontal lobe. No involvement of t he cortex. Probably from prior ischemic disease. Patient may benefit from a postcontrast study to jose luate for possible underlying neoplasm or vascular malformation. 5. No flow void in the LEFT intracranial carotid artery. Suspect occluded LEFT ICA.
== END 2022-12-23 09:26 | disposition home or self-care (01) ==
LOC: RAD 09:27
PROVIDERS: PCP Family Medicine Adult Medicine; Visit Provider Psychiatry & Neurology Neurology
DX: I99.8 Other disorder of circulatory system (principal); G93.89 Other specified disorders of brain; Z86.73 Personal history of transient ischemic attack (TIA), and cerebral infarction without residual deficits
CPT/HCPCS: 70551

== ENCOUNTER → 2022-12-24 12:00 | Outpatient (BNVA) | payer MEDICARE, SELFPAY | PROVIDERS: PCP Family Medicine Adult Medicine; Visit Provider Psychiatry & Neurology Neurology | DX: Z86.73 Personal history of transient ischemic attack (TIA), and cerebral infarction without residual deficits (principal); I10 Essential (primary) hypertension; I99.8 Other disorder of circulatory system; Z00.00 Encounter for general adult medical examination without abnormal findings; I69.398 Other sequelae of cerebral infarction; R56.9 Unspecified convulsions | CPT/HCPCS: 36415; 82565; 84520; 95813 ==

== ENCOUNTER 2023-01-07 14:15 | Outpatient (CLI) | payer MEDICARE, SELFPAY ==
--- NOTE | 2023-01-07 14:30 | MR_ITS ---
WS: [id number] MRI BRAIN WITH AND WITHOUT CONTRAST HISTORY: R56.9 - Unspecified convulsions COMPARISON: None available. TECHNIQUE: Multiplanar imaging performed through the brain with MultiHance 18 ml's IV. Diffusion imaging is normal. No acute infarct. Large remote LEFT cerebellar infarct. Prior infarct al mahsa the medial RIGHT cerebellum reidentified also. Subcortical white matter increased T2 and FLAIR si gnal LEFT frontal lobe is unchanged. No new areas of infarct identified. Moderate bilateral hippocampal formation atrophy. Increased CSF surrounding the hippocampal formation s. Signal is normal within the hippocampus and temporal lobes. Ventricles and extra-axial spaces are prominent. Ventricle size is slightly out of proportion to to t he atrophy. Clivus and pituitary gland are normal. No enhancing masses are identified. No vascular malformations. As described before no flow void in th e LEFT intracranial ICA. Dural venous sinuses are normal. Paranasal sinuses: Well aerated with no significant disease. Mastoid air cells: Normal. Calvarium and scalp: Normal. IMPRESSION: 1. Moderate bilateral hippocampal formation atrophy. Normal signal within the hippocampus. 2. No enhancing masses or vascular malformations. 3. Large remote stable LEFT cerebellar infarct. Smaller infarct in the medial RIGHT cerebellum. 4. Ventriculomegaly out of proportion to the amount of atrophy. Consider normal pressure hydrocephal us. 5. No flow void in the LEFT intracranial carotid artery. Suspect occluded LEFT ICA. 6. No enhancement in the LEFT frontal lobe signal abnormality.
== END 2023-01-07 14:16 | disposition home or self-care (01) ==
PROVIDERS: PCP Family Medicine Adult Medicine; Visit Provider Psychiatry & Neurology Neurology
DX: R56.9 Unspecified convulsions (principal); Z86.73 Personal history of transient ischemic attack (TIA), and cerebral infarction without residual deficits; G93.89 Other specified disorders of brain
CPT/HCPCS: 70553

== ENCOUNTER 2023-01-28 03:44 | Emergency (ER) | payer MEDICARE, SELFPAY ==
[2023-01-28] VITALS (7 sets, daily range): BP systolic 97–192; BP diastolic 71–133; PULSE 50–100; RESP 16–22; TEMP 36.6; O2SAT 96–100; BMI 25.5
--- NOTE | 2023-01-28 04:11 | CTR_ITS ---
PROCEDURE INFORMATION: Exam: CT Abdomen And Pelvis Without Contrast Exam date and time: 01/28/2023 4:21 AM Age: 68 years old Clinical indication: Abdominal pain; Localized; Lower; Prior surgery; Surgery date: 6+ months; Surgery type: Prostate removed-cancer; Additional info: Pelvic pain, known kidney stones, prostatectomy TECHNIQUE: Imaging protocol: Computed tomography of the abdomen and pelvis without contrast. Radiation optimization: All CT scans at this facility use at least one of these dose optimization techniques: automated exposure control; mA and/or kV adjustment per patient size (includes targeted exams where dose is matched to clinical indication); or iterative reconstruction. REPORTING DATA: Count of CT and Cardiac NM exams in prior 12 months: This patient has received [address] and 0 known cardiac nuclear medicine studies in the 12 months prior to the current study. COMPARISON: CT abdomen pelvis w con* [id number] 10/15/2022 10:08 AM RADIATION DOSE METRICS: Total DLP (mGy-cm): 615.67 FINDINGS: Liver: Normal. No mass. Gallbladder and bile ducts: Cholelithiasis. Contracted gallbladder without wall thickening. Negative for biliary system dilation. Pancreas: Normal. No ductal dilation. Spleen: Normal. No splenomegaly. Adrenal glands: Normal. No mass. Kidneys and ureters: Negative for urolithiasis. Negative for hydronephrosis. Negative perinephric inflammation. There is chronic end-stage left kidney parenchyma atrophy which is unchanged from prior. Stomach and bowel: Unremarkable. No obstruction. No mucosal thickening. Appendix: No evidence of appendicitis. Intraperitoneal space: Unremarkable. No free air. No significant fluid collection. Vasculature: Unremarkable. No abdominal aortic aneurysm. Lymph nodes: Unremarkable. No enlarged lymph nodes. Urinary bladder: Mild diffuse wall thickening with modest perivesical stranding which is nonspecific. Reproductive: Prostatectomy. Bones/joints: Unremarkable. No acute fracture. Soft tissues: Unremarkable. CT/CT kidney stone [id number] IMPRESSION: Cannot exclude cystitis, otherwise no acute abdominopelvic pathology is identified.
[2023-01-28 04:16] LABS: Basophils # 0.1 10^3/uL (0.0-0.1); Basophils % 0.7 %; Eosinophils # 0.3 10^3/uL (0.0-0.8); Eosinophils % 2.4 %; Hematocrit 41.8 % (37-53); Lymphocytes # 2.5 10^3/uL (0.8-4.8); Lymphocytes % 23.2 %; Mean Corpuscular HGB Conc 33.5 g/dL (30-55); Mean Corpuscular Hemoglobin 30.4 pg (27-33); Mean Corpuscular Volume 90.9 fl (82-101); Mean Platelet Volume 9.4 fL (7.4-10.4); Neutrophils # 6.93 10^3/uL (1.8-7.7); Neutrophils % 64.4 %; Nucleated Red Blood Cells % 0 %; Platelet Count 225 10^3/cmm (157-399); Red Cell Distribution Width 13.2 % (12.1-15.1); White Blood Count 10.75 10^3/uL (3.29-11.43)
--- NOTE | 2023-01-28 04:25 | W.ED.MALEGU ---
Documented by User: Chris Turcios DO 01/28/23 18:09 HPI - Male Genitourinary General: Chief complaint: Urogenital-Male Stated complaint: Possible Kidney Stones Time Seen by Provider: 01/28/23 03:46 History of Present Illness: patient presents to the ER with complaining of suprapubic pain radiating down to his groin. Patient says he thinks he might have a kidney stone. Patient denies gross blood in his urine but states he has known kidney stones in both kidneys. Patient also states he feels like he has been having urinary frequency and not being able to completely empty so he was wondering if a stone is obstructing. Pain hits the pain is intense and severe. He of prostate cancer with prostatectomy patient sees a urologist in [place]. Patient also has only 1 functioning kidney. And is currently on Eliquis And flecainide for A-fib Review of Systems General: Reports: 10 or more systems reviewed and unremarkable except in HPI and below PFSH ED PFSH: Medical History Atrial fibrillation BPH loc w urin obs/LUTS Chronic low back pain CKD (chronic kidney disease) stage 3, GFR 30-59 ml/min Colon cancer screening benign Colon polyps, internal hemorrhoids on colonoscopy 04/30/2022 CVD (cardiovascular disease) Hx of TIA no residual Decreased calculated GFR Gout Hx TIA/stroke w/o resid (~2019) Hyperlipidemia Hypertension Insomnia disorder Prostate CA Seasonal allergies Well adult health check Surgical History History of surgery on wrist Family History Mother COPD (chronic obstructive pulmonary disease) Hypertension Lung disease Other CAD (coronary artery disease) Social History Smoking and tobacco/nicotine status: never used tobacco/nicotine Alcohol intake: current Alcohol intake frequency: 0-2 Drinks per Day Alcohol type: beer Substance/Drug Use: never Caregiver/support person: No Lives independently: Yes Household members: spouse Marital status: Number of children: 3 Number of grandchildren: 3 Highest education level completed: Some College, No Degree service: No Current occupational status: retired Pets and animals: Yes Pets & animals: dog(s) Do you think of yourself as: Straight/Heterosexual Current gender identity: Male Nadine/Druze: Confucianism Special nadine needs: No Physical Exam Const: COMMON NORMALS: no acute distress, average body habitus, patient oriented x3, no limitations, healthy appearing, alert and well nourished HENMT: COMMON NORMALS: normocephalic, atraumatic, hearing grossly normal bilaterally, external ears normal, Normal external nose present, moist oral mucous membranes and oropharynx normal HEAD & SCALP: normocephalic and atraumatic NOSE: Normal external nose present EXTERNAL EAR: Yes external ears normal Neck/C-Spine: COMMON NORMALS: no JVD Chest: COMMONS NORMALS: normal inspection of the chest and normal palpation of entire chest wall Resp: COMMON NORMALS: normal respiratory effort, No retractions, No use of accessory muscles and clear to auscultation bilaterally AUSCULTATION: clear to auscultation bilaterally Cardio: COMMON NORMALS: no JVD, regular rhythm, S1 normal heart sound present, S2 normal heart sound present, No gallops present (Cardio), No clicks present (Cardio), No murmurs present (Cardio) and No rub (Cardio); negative for regular rate ( bradycardic) RATE: abnormal rate ( bradycardic) RHYTHM: regular rhythm HEART SOUNDS: S1 normal heart sound present and S2 normal heart sound present GI: COMMON NORMALS: Normal to inspection, nondistended, normoactive bowel sounds present, Soft to palpation, No hepatosplenomegaly present and no masses; negative for non-tender ( mildly tender to palpate over suprapubic region) PALPATION: Yes Soft to palpation and Yes No hepatosplenomegaly present Neuro: COMMON NORMALS: patient oriented x3 SENSORIUM/ORIENTATION: Yes alert Course Vital Signs: Vital signs: Vital Signs Temperature 97.8 F 01/28/23 03:55 Pulse Rate 100 01/28/23 06:17 Respiratory Rate 18 01/28/23 06:57 Blood Pressure 154/133 01/28/23 06:17 Pulse Oximetry 100 01/28/23 06:17 Oxygen Delivery Me thod Room Air 01/28/23 06:17 MDM - Male Differential Diagnosis Unlikely urinary tract infection, priapism, urethritis, epididymitis, genital herpes simplex, prostatitis, acute retention of urine or inguinal hernia Medical Records I reviewed the patient's medical records. Lab Data I reviewed the patient's lab results. 01/28/23 04:03 01/28/23 04:03 Radiology Impressions Abdomen/Pelvis CT 01/28/23 04:11 IMPRESSION: Cannot exclude cystitis, otherwise no acute abdominopelvic pathology is identified. Laboratory Results WBC 10.75 10^3/uL (3.29-11.43) 01/28/23 04:03 RBC 4.60 10^6/uL (3.85-5.65) 01/28/23 04:03 Hgb 14.00 g/dL (11.27-16.99) 01/28/23 04:03 Hct 41.8 % (37-53) 01/28/23 04:03 MCV 90.9 fl (82-101) 01/28/23 04:03 MCH 30.4 pg (27-33) 01/28/23 04:03 MCHC 33.5 g/dL (30-55) 01/28/23 04:03 RDW 13.2 % (12.1-15.1) 01/28/23 04:03 Plt Count 225 10^3/cmm (157-399) 01/28/23 04:03 MPV 9.4 fL (7.4-10.4) 01/28/23 04:03 Neut % (Auto) 64.4 % 01/28/23 04:03 Lymph % (Auto) 23.2 % 01/28/23 04:03 Josephine % (Auto) 9.0 % 01/28/23 04:03 Eos % (Auto) 2.4 % 01/28/23 04:03 Baso % (Auto) 0.7 % 01/28/23 04:03 Neut # (Auto) 6.93 10^3/uL (1.8-7.7) 01/28/23 04:03 Lymph # (Auto) 2.5 10^3/uL (0.8-4.8) 01/28/23 04:03 Josephine # (Auto) 1.0 10^3/uL (0.2-0.9) H 01/28/23 04:03 Eos # (Auto) 0.3 10^3/uL (0.0-0.8) 01/28/23 04:03 Baso # (Auto) 0.1 10^3/uL (0.0-0.1) 01/28/23 04:03 Nucleated RBC % (auto) 0 % 01/28/23 04:03 Nucleated RBCs # 0.0 /100WBC 01/28/23 04:03 Sodium 140 mmol/L (136-145) 01/28/23 04:03 Potassium 4.2 mmol/L (3.5-5.1) 01/28/23 04:03 Chloride 105 mmol/L (98-107) 01/28/23 04:03 Carbon Dioxide 25 mmol/L (22-29) 01/28/23 04:03 Anion Gap 14.2 (5-19) 01/28/23 04:03 BUN 22 mg/dL (8-23) 01/28/23 04:03 Creatinine 1.4 mg/dL (0.7-1.2) H 01/28/23 04:03 GFR Calculation 50.5 mL/min (90-130) L 01/28/23 04:03 Glucose 100 mg/dL (65-115) 01/28/23 04:03 Calculated Osmolality 293 mOsm/kg (285-295) 01/28/23 04:03 Calcium 9.4 mg/dL (8.5-10.5) 01/28/23 04:03 Total Bilirubin 0.5 mg/dL (0.15-1.2) 01/28/23 04:03 AST 18 U/L (0-40) 01/28/23 04:03 ALT 17 U/L (0-41) 01/28/23 04:03 Alkaline Phosphatase 55 U/L (40-130) 01/28/23 04:03 Total Protein 6.8 g/dL (6.6-8.7) 01/28/23 04:03 Albumin 4.0 g/dL (3.5-5.2) 01/28/23 04:03 Globulin 2.8 g/dL (1.3-4.6) 01/28/23 04:03 Urine Color Yellow (Yellow) 01/28/23 05:59 Urine Appearance Sl hazy (CLEAR) A 01/28/23 05:59 Urine pH 7 (5-7) 01/28/23 05:59 Ur Specific [place] 1.015 (1.005-1.030) 01/28/23 05:59 Urine Protein Neg (Negative) 01/28/23 05:59 Urine Glucose (UA) Norm (Normal) 01/28/23 05:59 Urine Ketones Negative (Negative) 01/28/23 05:59 Urine Blood 2+ (Negative) H 01/28/23 05:59 Urine Nitrate Negative (Negative) 01/28/23 05:59 Urine Bilirubin Neg (Negative) 01/28/23 05:59 Urine Urobilinogen Neg mg/dL (Negative) 01/28/23 05:59 Ur Leukocyte Esterase 2+ (Negative) H 01/28/23 05:59 Urine RBC 0-4 /hpf (0-2) H 01/28/23 05:59 Urine WBC 5-10 /hpf (0-5) H 01/28/23 05:59 Ur Squamous Epith Cells None /hpf (0-5) 01/28/23 05:59 Ur Transition Epith Cell 0-4 /hpf 01/28/23 05:59 Amorphous Sediment Not Reportable 01/28/23 05:59 Urine Bacteria 1+ /hpf (NONE) H 01/28/23 05:59 All radiology interpretation(s) finalized by discharge Discharge Plan Discharge Patient Disposition: Home Clinical Impression: Cystitis, Prostatitis Condition: Stable Prescriptions: New Cipro 500 mg tablet 500 mg PO BID Qty: 14 0RF Pyridium 200 mg tablet 200 mg PO Q8H Qty: 6 0RF No Action loratadine [Allergy Relief (loratadine)] 10 mg tablet 10 mg PO DAILY flecainide 100 mg tablet 75 mg PO Q12H atorvastatin 40 mg tablet 40 mg PO DAILY Qty: 90 3RF aspirin 81 mg tablet,delayed release (DR/EC) 81 mg PO DAILY Qty: 90 3RF Eliquis 2.5 mg tablet 2.5 mg PO BID Qty: 180 3RF trazodone 100 mg tablet 100 mg PO BEDTIME PRN (Reason: Insomnia) Qty: 90 1RF cyclobenzaprine 5 mg tablet 2.5 mg PO DAILY PRN (Reason: Muscle Spasm) Qty: 90 1RF hydrocodone-acetaminophen 10-325 mg tablet 1 tab PO DAILY PRN (Reason: chronic back pain) 30 Days Qty: 30 0RF docusate sodium 100 mg capsule 100 mg PO BEDTIME Discharge Orders: Discharge ED (Routine); Ordered 01/28/23 Ordered By: Jeffrey Maza Referrals: Kristian Bertrand MD [Primary Care Provider] - Discharge Diet: Usual diet Discharge Activity: Increase activity as tolerated Patient Instructions: Opioid Safety, Pain Management Activity Restrictions/Additional Instructions: Thank you for choosing [facility] for your healthcare needs today. Please realize this is an emergency room and that we are providing you with a medical screening exam and this may not be complete and all inclusive of all the testing and or work up that you may need to determine your ailment or severity of your illness. It is very important that you follow up as instructed or that you return to the Emergency Department should you have concerns or if your condition changes or worsens in any way. You were found to have a bladder infection, Follow up with your urologist with in the next week. Sign Out Sign Out Data: Patient Sign Out occurred on 01/28/23 at 06:03. Patient's care was discussed, and care was transferred from to Jeffrey Maza DO. Coding Level of Care Code ED Jewel Stringer for Chg Fwd Documented by User: Jeffrey Maza DO 01/28/23 13:33 HPI - Male Genitourinary General: Chief complaint: Urogenital-Male Stated complaint: Possible Kidney Stones Time Seen by Provider: 01/28/23 03:46 PFSH ED PFSH: Medical History Atrial fibrillation BPH loc w urin obs/LUTS Chronic low back pain CKD (chronic kidney disease) stage 3, GFR 30-59 ml/min Colon cancer screening benign Colon polyps, internal hemorrhoids on colonoscopy 04/30/2022 CVD (cardiovascular disease) Hx of TIA no residual Decreased calculated GFR Gout Hx TIA/stroke w/o resid (~2019) Hyperlipidemia Hypertension Insomnia disorder Prostate CA Seasonal allergies Well adult health check Surgical History History of surgery on wrist Family History Mother COPD (chronic obstructive pulmonary disease) Hypertension Lung disease Other CAD (coronary artery disease) Social History Smoking and tobacco/nicotine status: never used tobacco/nicotine Alcohol intake: current Alcohol intake frequency: 0-2 Drinks per Day Alcohol type: beer Substance/Drug Use: never Caregiver/support person: No Lives independently: Yes Household members: spouse Marital status: Number of children: 3 Number of grandchildren: 3 Highest education level completed: Some College, No Degree service: No Current occupational status: retired Pets and animals: Yes Pets & animals: dog(s) Do you think of yourself as: Straight/Heterosexual Current gender identity: Male Nadine/Druze: Confucianism Special nadine needs: No Course Vital Signs: Vital signs: Vital Signs Temperature 97.8 F 01/28/23 03:55 Pulse Rate 100 01/28/23 06:17 Respiratory Rate 18 01/28/23 06:57 Blood Pressure 154/133 01/28/23 06:17 Pulse Oximetry 100 01/28/23 06:17 Oxygen Delivery Me thod Room Air 01/28/23 06:17 MDM - Male Medical Decision Making Care assumed at change of shift patient has no leukocytosis does have a mild cystitis. CT did not show anything significantly acute other than some mild bladder changes suggestive of cystitis. Reviewed his previous cultures placed on Cipro. Follow-up with urology or primary care. Patient quite a bit of shaking discomfort this was relieved with medications given. Lab Data 01/28/23 04:03 01/28/23 04:03 Radiology Impressions Abdomen/Pelvis CT 01/28/23 04:11 IMPRESSION: Cannot exclude cystitis, otherwise no acute abdominopelvic pathology is identified. Laboratory Results WBC 10.75 10^3/uL (3.29-11.43) 01/28/23 04:03 RBC 4.60 10^6/uL (3.85-5.65) 01/28/23 04:03 Hgb 14.00 g/dL (11.27-16.99) 01/28/23 04:03 Hct 41.8 % (37-53) 01/28/23 04:03 MCV 90.9 fl (82-101) 01/28/23 04:03 MCH 30.4 pg (27-33) 01/28/23 04:03 MCHC 33.5 g/dL (30-55) 01/28/23 04:03 RDW 13.2 % (12.1-15.1) 01/28/23 04:03 Plt Count 225 10^3/cmm (157-399) 01/28/23 04:03 MPV 9.4 fL (7.4-10.4) 01/28/23 04:03 Neut % (Auto) 64.4 % 01/28/23 04:03 Lymph % (Auto) 23.2 % 01/28/23 04:03 Josephine % (Auto) 9.0 % 01/28/23 04:03 Eos % (Auto) 2.4 % 01/28/23 04:03 Baso % (Auto) 0.7 % 01/28/23 04:03 Neut # (Auto) 6.93 10^3/uL (1.8-7.7) 01/28/23 04:03 Lymph # (Auto) 2.5 10^3/uL (0.8-4.8) 01/28/23 04:03 Josephine # (Auto) 1.0 10^3/uL (0.2-0.9) H 01/28/23 04:03 Eos # (Auto) 0.3 10^3/uL (0.0-0.8) 01/28/23 04:03 Baso # (Auto) 0.1 10^3/uL (0.0-0.1) 01/28/23 04:03 Nucleated RBC % (auto) 0 % 01/28/23 04:03 Nucleated RBCs # 0.0 /100WBC 01/28/23 04:03 Sodium 140 mmol/L (136-145) 01/28/23 04:03 Potassium 4.2 mmol/L (3.5-5.1) 01/28/23 04:03 Chloride 105 mmol/L (98-107) 01/28/23 04:03 Carbon Dioxide 25 mmol/L (22-29) 01/28/23 04:03 Anion Gap 14.2 (5-19) 01/28/23 04:03 BUN 22 mg/dL (8-23) 01/28/23 04:03 Creatinine 1.4 mg/dL (0.7-1.2) H 01/28/23 04:03 GFR Calculation 50.5 mL/min (90-130) L 01/28/23 04:03 Glucose 100 mg/dL (65-115) 01/28/23 04:03 Calculated Osmolality 293 mOsm/kg (285-295) 01/28/23 04:03 Calcium 9.4 mg/dL (8.5-10.5) 01/28/23 04:03 Total Bilirubin 0.5 mg/dL (0.15-1.2) 01/28/23 04:03 AST 18 U/L (0-40) 01/28/23 04:03 ALT 17 U/L (0-41) 01/28/23 04:03 Alkaline Phosphatase 55 U/L (40-130) 01/28/23 04:03 Total Protein 6.8 g/dL (6.6-8.7) 01/28/23 04:03 Albumin 4.0 g/dL (3.5-5.2) 01/28/23 04:03 Globulin 2.8 g/dL (1.3-4.6) 01/28/23 04:03 Urine Color Yellow (Yellow) 01/28/23 05:59 Urine Appearance Sl hazy (CLEAR) A 01/28/23 05:59 Urine pH 7 (5-7) 01/28/23 05:59 Ur Specific [place] 1.015 (1.005-1.030) 01/28/23 05:59 Urine Protein Neg (Negative) 01/28/23 05:59 Urine Glucose (UA) Norm (Normal) 01/28/23 05:59 Urine Ketones Negative (Negative) 01/28/23 05:59 Urine Blood 2+ (Negative) H 01/28/23 05:59 Urine Nitrate Negative (Negative) 01/28/23 05:59 Urine Bilirubin Neg (Negative) 01/28/23 05:59 Urine Urobilinogen Neg mg/dL (Negative) 01/28/23 05:59 Ur Leukocyte Esterase 2+ (Negative) H 01/28/23 05:59 Urine RBC 0-4 /hpf (0-2) H 11/09/23 05:59 Urine WBC 5-10 /hpf (0-5) H 01/28/23 05:59 Ur Squamous Epith Cells None /hpf (0-5) 01/28/23 05:59 Ur Transition Epith Cell 0-4 /hpf 01/28/23 05:59 Amorphous Sediment Not Reportable 01/28/23 05:59 Urine Bacteria 1+ /hpf (NONE) H 01/28/23 05:59 Discharge Plan Discharge Patient Disposition: Home Clinical Impression: Cystitis, Prostatitis Condition: Stable Prescriptions: New Cipro 500 mg tablet 500 mg PO BID Qty: 14 0RF Pyridium 200 mg tablet 200 mg PO Q8H Qty: 6 0RF No Action loratadine [Allergy Relief (loratadine)] 10 mg tablet 10 mg PO DAILY flecainide 100 mg tablet 75 mg PO Q12H atorvastatin 40 mg tablet 40 mg PO DAILY Qty: 90 3RF aspirin 81 mg tablet,delayed release (DR/EC) 81 mg PO DAILY Qty: 90 3RF Eliquis 2.5 mg tablet 2.5 mg PO BID Qty: 180 3RF trazodone 100 mg tablet 100 mg PO BEDTIME PRN (Reason: Insomnia) Qty: 90 1RF cyclobenzaprine 5 mg tablet 2.5 mg PO DAILY PRN (Reason: Muscle Spasm) Qty: 90 1RF hydrocodone-acetaminophen 10-325 mg tablet 1 tab PO DAILY PRN (Reason: chronic back pain) 30 Days Qty: 30 0RF docusate sodium 100 mg capsule 100 mg PO BEDTIME Discharge Orders: Discharge ED (Routine); Ordered 01/28/23 Ordered By: Jeffrey Maza Referrals: Kristian Bertrand MD [Primary Care Provider] - Discharge Diet: Usual diet Discharge Activity: Increase activity as tolerated Patient Instructions: Opioid Safety, Pain Management Activity Restrictions/Additional Instructions: Thank you for choosing [facility] for your healthcare needs today. Please realize this is an emergency room and that we are providing you with a medical screening exam and this may not be complete and all inclusive of all the testing and or work up that you may need to determine your ailment or severity of your illness. It is very important that you follow up as instructed or that you return to the Emergency Department should you have concerns or if your condition changes or worsens in any way. You were found to have a bladder infection, Follow up with your urologist with in the next week. Sign Out Sign Out Data: Patient Sign Out occurred on 01/28/23 at 06:03. Patient's care was discussed, and care was transferred from to Jeffrey Maza DO. Coding Level of Care Code ED Jewel Stringer for Gale Jarrell
[2023-01-28 04:27] LABS: Alanine Aminotransferase 17 U/L (0-41); Alkaline Phosphatase 55 U/L (40-130); Aspartate Amino Transferase 18 U/L (0-40); Blood Urea Nitrogen 22 mg/dL (8-23); Calcium 9.4 mg/dL (8.5-10.5); Carbon Dioxide 25 mmol/L (22-29); Chloride 105 mmol/L (98-107); Globulin 2.8 g/dL (1.3-4.6); Glomerular Filtration Rate 50.5 mL/min (90-130); Glucose 100 mg/dL (65-115); Osmolality Calculated 293 mOsm/kg (285-295); Sodium 140 mmol/L (136-145); Total Bilirubin 0.5 mg/dL (0.15-1.2); Total Protein 6.8 g/dL (6.6-8.7)
[2023-01-28 04:31] LABS: Anion Gap 14.2 (5-19); Potassium 4.2 mmol/L (3.5-5.1)
[2023-01-28] MEDS: hyDRALAzine 20 mg/mL INJ 1 mL IVP (04:34)
[2023-01-28] MEDS: morphine 4 mg/mL SDV 1 mL IVP (05:14)
[2023-01-28] MEDS: diphenhydrAMINE 50 mg/mL SDV 1mL 25 MG IVP (05:15)
[2023-01-28] MEDS: sodium chloride 0.9% 1,000 ML 999 ML IV (05:44)
--- NOTE | 2023-01-28 05:44 | PC.NURSE ---
pt began to shake and have severe pain almost immediately after the morphine and benadryl were pushed. pt states that it has not helped his pain at all. pt was given a cool rag and ED physician was notified.
[2023-01-28 06:10] LABS: Specific Gravity, Urine 1.015 (1.005-1.030); Urine Appearance SL Hazy (CLEAR); Urine Color Yellow (Yellow); pH Urine 7 (5-7)
[2023-01-28 06:11] LABS: Add Urine Microscopic? YES; Bilirubin Urine Neg (Negative); Blood Urine 2+ (Negative); Glucose Urine UA Norm (Normal); Ketones Urine Negative (Negative); Leukocyte Esterase Urine 2+ (Negative); Nitrate Urine Negative (Negative); Protein Urine Neg (Negative); RBC Urine 0-4 /hpf (0-2); Transitional Epi Cells Urine 0-4 /hpf; Urobilinogen Urine Neg (Negative)
[2023-01-28 06:12] LABS: Add Urine Culture? No; Bacteria Urine 1+ /hpf
[2023-01-28] MEDS: ciprofloxacin 400 MG/200 ML PREMIX 200 MG IV (06:33)
[2023-01-28] MEDS: phenazopyridine 100 mg Tablet 200 MG PO (06:56)
[2023-01-28] MEDS: HYDROmorphone 1 mg/mL INJ 1 mL 0.5 MG IVP (06:57)
[2023-01-28] MEDS: promethazine 25 mg/mL SDV 1 mL IM (07:41)
[2023-01-28] MEDS: LORazepam 2 mg/mL INJ 1 mL IM (07:48)
== END 2023-01-28 08:06 | disposition home or self-care (01) ==
PROVIDERS: Emergency Medicine; Emergency Provider Family Medicine; PCP Family Medicine Adult Medicine
DX: N30.90 Cystitis, unspecified without hematuria (principal); N41.9 Inflammatory disease of prostate, unspecified; Z79.01 Long term (current) use of anticoagulants; Z79.82 Long term (current) use of aspirin; I12.9 Hypertensive chronic kidney disease with stage 1 through stage 4 chronic kidney disease, or unspecified chronic kidney disease; N18.30 Chronic kidney disease, stage 3 unspecified; Z86.73 Personal history of transient ischemic attack (TIA), and cerebral infarction without residual deficits; E78.5 Hyperlipidemia, unspecified; Z85.46 Personal history of malignant neoplasm of prostate
CPT/HCPCS: 36415; 51798; 74176; 80053; 81001; 85025; 87040; 96365; 96372; 96375; 99285; J0360; J0744; J1170; J1200; J2060; J2270; J2550; J7030

== ENCOUNTER → 2023-02-01 08:48 | Outpatient (BNVA) | payer MEDICARE, SELFPAY | PROVIDERS: PCP Family Medicine Adult Medicine; Visit Provider Nurse Practitioner Family | DX: R39.9 Unspecified symptoms and signs involving the genitourinary system (principal); R30.1 Vesical tenesmus | CPT/HCPCS: 81000 ==

== ENCOUNTER → 2023-02-04 09:47 | Outpatient (BNVA) | payer MEDICARE, SELFPAY | PROVIDERS: PCP Family Medicine Adult Medicine; Visit Provider Family Medicine Adult Medicine | DX: N34.3 Urethral syndrome, unspecified (principal); R33.9 Retention of urine, unspecified | CPT/HCPCS: 81003 ==

== ENCOUNTER → 2023-06-22 14:48 | Outpatient (BNVA) | payer MEDICARE, SELFPAY | PROVIDERS: PCP Family Medicine Adult Medicine; Visit Provider Psychiatry & Neurology Neurology | DX: I99.8 Other disorder of circulatory system (principal); R41.3 Other amnesia | CPT/HCPCS: 99212 ==